=== PATIENT | female | born 1950 | race Caucasian/White ===

== ENCOUNTER 2022-01-18 08:24 | Emergency (ER) | payer MEDICARE, BC, SELFPAY ==
[2022-01-18 08:38] VITALS: BP 137/70; PULSE 85; RESP 18; O2SAT 97; BMI 22.7
[2022-01-18 09:00] VITALS: BP 123/73; PULSE 84; RESP 14; O2SAT 97
[2022-01-18 09:07] VITALS: O2SAT 94
--- NOTE | 2022-01-18 09:07 | CRLHL7_ITS ---
For Patients: As a result of the Century Cures Act, medical imaging exams and procedure reports are released immediately into your electronic medical record. You may view this report before your referring provider. If you have questions, please contact your health care provider. Indication: Chest Pain Comparison: None available. Technique: Single AP view chest Findings: There is hyperinflation and chronic interstitial change. There is no focal consolidation, effusion, or pneumothorax. The cardiomediastinal silhouette is within normal limits. The bony thorax is grossly intact. Impression: No acute cardiopulmonary abnormality. Dictated by Ji Morales MD @ 01/18/2022 9:53:34 AM (Electronically Signed)
--- NOTE | 2022-01-18 09:08 | ED_ITS ---
HPI - General Adult General Time Seen by Provider: 09:08 Date Seen: 01/18/22 Chief complaint: Chest Pain Stated complaint: Chest discomfort,anxiety Time Seen by Provider: 01/18/22 08:28 Source: patient Mode of arrival: ambulatory Limitations: no limitations History of Present Illness HPI narrative: Patient is a 71 year white female who presents with chest tightness. She woke up at approximately 4 this morning, started to cough and felt like she had a airway congestion and mucus plug she tried to cough this out and subsequent developed some chest tightness and spasm under her breast bone. No radiation, no neck pain known arm pain, known eyes nausea, vomiting, diaphoresis. She has had no abdominal pain, no leg swelling or edema, no bleeding or clotting prob lems. Patient has not had any cardiac history, she has not had hypertension, or diabetes, or high cholesterol. Patient has had a past medical history of a subdural hematoma with craniotomy several years ago from a fall down stairs, spinal stenosis on gabapentin, sleep problem, depression anxiety. Patient denies COVID symptoms, recent fever chills or cold symptoms, skin rashes, no neck pain back pain that is different than normal. Related Data Allergies Allergy/AdvReac Type Severity Reaction Status Date / Time hydrocodone Allergy Verified 01/18/22 09:24 soy Allergy Verified 01/18/22 09:24 lorazepam [From Ativan] AdvReac Mild feeling Verified 01/18/22 09:24 weird Review of Systems Status of ROS: Reports: 10 or more systems reviewed and unremarkable except as noted in History and below Exam Narrative: Exam Narrative: Objective: Patient is alert or x3 in no distress noncyanotic HEENT is unremarkable neck supple out nodes chest is clear heart rhythm regular heart murmur no palpable chest wall pain abdomen benign soft extremities are without edema. Neurologic is nonfocal Good peripheral perfusion Skin is warm and dry, no rashes Const: Vital Signs, click to edit/add: Vital Signs - 24 hr 01/18/22 08:38 01/18/22 09:07 Pulse Rate [Apical ] 85 Respiratory Rate 18 Blood Pressure [Ri ght Upper Arm] 137/70 Pulse Oximetry 97 94 Oxygen Delivery Me thod Room Air Course Vital Signs Vital signs: Initial Vital Signs Temperature Source Temporal Artery Scan 01/18/22 08:38 Pulse Rate 85 01/18/22 08:38 Pulse Rhythm 01/18/22 08:38 Respiratory Rate 18 01/18/22 08:38 Blood Pressure 137/70 01/18/22 08:38 Blood Pressure Mean 92 01/18/22 08:38 Pulse Oximetry 97 01/18/22 08:38 Oxygen Delivery Method 01/18/22 08:38 Vital Signs Pulse Rate 85 01/18/22 08:38 Respiratory Rate 18 01/18/22 08:38 Blood Pressure 137/70 01/18/22 08:38 Pulse Oximetry 97 01/18/22 08:38 Oxygen Delivery Method 01/18/22 08:38 Pulse Rate 85 01/18/22 08:38 Respiratory Rate 18 01/18/22 08:38 Blood Pressure 137/70 01/18/22 08:38 Pulse Oximetry 94 01/18/22 09:07 Oxygen Delivery Method 01/18/22 08:38 Medical Decision Making MDM Narrative Medical decision making narrative: The patient had an episode of coughing this morning, and subsequent had some chest tightness, certainly this could be some esophageal irritation or tracheal irritation, or just chest wall discomfort. She also has a history of anxiety and I think that is made this more prominent. Will do a 90 minute cardiac rule- out protocol, EKG monitoring, IV Ativan, aspirin. At this point she really describes only just mild tightness substernally, and it has improved significantly, no radiation of discomfort. EKG on presentation by my read shows normal sinus rhythm no acute ST T wave changes a couple of PACs. Addendum: Patient's chest x-ray by my review looks unremarkable, EKG shows normal sinus rhythm no acute ST T wave changes couple of PACs. Two troponins are negative. She declined any Ativan. I suspect she may have some chest wall inflammation, or symptoms related to anxiety from this morning. Light activity recommended continue home medications, follow up with primary care in the next 2 days for reassessment certainly sooner change concerns worsening. Return to ED Lab Data Labs: Lab Results 01/18/22 01/18/22 01/18/22 Range/Units 09:00 09:00 09:08 WBC 9.18 (4.50-11.00) K/uL RBC 3.42 L (4.00-5.20) m/uL Hgb 11.4 L (12.0-16.0) gm/dL Hct 33.1 (33.0-51.0) % MCV 97 (80-100) fL MCH 33 (26-34) pg MCHC 34 (32-36) gm/dL RDW Coeff of Carolynn 11.9 (11.5-15.5) % Plt Count 272 (140-440) K/uL Neut % (Auto) 77.0 H (42.0-72.0) % Lymph % (Auto) 11.8 L (20-44) % [place] % (Auto) 8.2 (0.0-11.0) % Eos % (Auto) 2.1 (0.0-7.0) % Baso % (Auto) 0.4 (0.0-3.0) % Neut # (Auto) 7.10 H (1.7-7.0) K/uL Lymph # (Auto) 1.10 (0.90-2.90) K/uL [place] # (Auto) 0.80 (0.00-0.90) K/UL Eos # (Auto) 0.19 (0.00-0.50) K/uL Baso # (Auto) 0.04 (0.00-0.30) K/uL Abs Immat Gran (auto) 0.05 (0.00-0.30) K/uL Sodium 135 (135-149) mmol/L Potassium 3.7 (3.6-5.1) mmol/L Chloride 101 (96-114) mmol/L Carbon Dioxide 27 (20-32) mmol/L BUN 15 (7-30) mg/dL Creatinine 0.6 (0.5-1.5) mg/dL Estimated Creat Clear 40.07 Estimated GFR 97 ml/min Glucose 114 (60-115) mg/dL Calcium 8.7 (8.4-10.6) mg/dL C-Reactive Protein < 0.5 L (0.5-1.0) mg/dL NT-Pro-B Natriuret Pep 192 H (0-125) PG/mL POC Troponin I 0.00 L (0.01-0.04) ng/ml 01/18/22 Range/Units 10:33 WBC (4.50-11.00) K/uL RBC (4.00-5.20) m/uL Hgb (12.0-16.0) gm/dL Hct (33.0-51.0) % MCV (80-100) fL MCH (26-34) pg MCHC (32-36) gm/dL RDW Coeff of Carolynn (11.5-15.5) % Plt Count (140-440) K/uL Neut % (Auto) (42.0-72.0) % Lymph % (Auto) (20-44) % [place] % (Auto) (0.0-11.0) % Eos % (Auto) (0.0-7.0) % Baso % (Auto) (0.0-3.0) % Neut # (Auto) (1.7-7.0) K/uL Lymph # (Auto) (0.90-2.90) K/uL [place] # (Auto) (0.00-0.90) K/UL Eos # (Auto) (0.00-0.50) K/uL Baso # (Auto) (0.00-0.30) K/uL Abs Immat Gran (auto) (0.00-0.30) K/uL Sodium (135-149) mmol/L Potassium (3.6-5.1) mmol/L Chloride (96-114) mmol/L Carbon Dioxide (20-32) mmol/L BUN (7-30) mg/dL Creatinine (0.5-1.5) mg/dL Estimated Creat Clear Estimated GFR ml/min Glucose (60-115) mg/dL Calcium (8.4-10.6) mg/dL C-Reactive Protein (0.5-1.0) mg/dL NT-Pro-B Natriuret Pep (0-125) PG/mL POC Troponin I 0.01 (0.01-0.04) ng/ml Discharge Plan Discharge Clinical Impression: Acute chest wall pain Patient Disposition: Home w/ Parent or Adult Condition: Improved Additional Instructions: Light activity, continue home medications, recheck with primary care doctor within the next 2 days. Return sooner problems or concerns or recurrence. We discussed further cardiac assessment with her regular physician. Activity Level: Light activity Discharge Diet: Regular Follow Up/Referrals: Audra Zepeda MD [Primary Care Provider] - Stand Alone Forms: [employer] Info Instructions
[2022-01-18 09:18] LABS: Basophils Absolute Auto 0.04 K/uL (0.00-0.30); Basophils Percent Auto 0.4 % (0.0-3.0); Eosinophils Absolute Auto 0.19 K/uL (0.00-0.50); Eosinophils Percent Auto 2.1 % (0.0-7.0); Hematocrit 33.1 % (33.0-51.0); Hemoglobin* 11.4 gm/dL (12.0-16.0); Immature Granulocytes Abs Auto 0.05 K/uL (0.00-0.30); Lymphocytes Percent Auto 11.8 % (20-44); Mean Corpuscular HGB Conc 34 gm/dL (32-36); Mean Corpuscular Hemoglobin 33 pg (26-34); Mean Corpuscular Volume 97 fL (80-100); Monocytes Percent Auto 8.2 % (0.0-11.0); Platelet Count* 272 K/uL (140-440); RDW Coefficient of Variation % 11.9 % (11.5-15.5); Red Blood Count 3.42 m/uL (4.00-5.20); White Blood Count* 9.18 K/uL (4.50-11.00)
[2022-01-18 09:20] LABS: Slide Review Reflex No
[2022-01-18] MEDS: ASPIRIN 81 MG TAB.CHEW 324 MG PO (09:22)
[2022-01-18] MEDS: 0.9 % SODIUM CHLORIDE 500 ML 500 ML IV (09:22)
--- NOTE | 2022-01-18 09:22 | ED.NURSE ---
Pt refusing ativan at this time d/t previous hx of feeling weird.
[2022-01-18 09:28] LABS: Chloride* 101 mmol/L (96-114); Potassium* 3.7 mmol/L (3.6-5.1); Sodium* 135 mmol/L (135-149)
[2022-01-18 09:30] VITALS: BP 121/63; PULSE 82; RESP 12; O2SAT 98
[2022-01-18 09:31] LABS: Creatinine* 0.6 mg/dL (0.5-1.5); Est. Creatinine Clearance* 40.07; Estimated Glomerular Filt Rate 97 ml/min
[2022-01-18 09:32] LABS: Blood Urea Nitrogen* 15 mg/dL (7-30); Calcium* 8.7 mg/dL (8.4-10.6); Carbon Dioxide* 27 mmol/L (20-32); Glucose* 114 mg/dL (60-115)
[2022-01-18 09:40] LABS: NT Pro B Type NatriureticPept* 192 PG/mL (0-125)
[2022-01-18 09:44] LABS: C Reactive Protein* < 0.5 mg/dL (0.5-1.0)
[2022-01-18 10:00] VITALS: BP 131/67; PULSE 84; RESP 18; O2SAT 98
[2022-01-18 10:30] VITALS: BP 108/84; PULSE 89; RESP 12; O2SAT 98
[2022-01-18 10:56] LABS: Troponin, Point-of-Care* 0.01 ng/ml (0.01-0.04)
== END 2022-01-18 11:30 | disposition home or self-care (01) ==
PROVIDERS: Emergency Provider Family Medicine; PCP Family Medicine
DX: R07.89 Other chest pain (principal)
CPT/HCPCS: 36415; 71045; 80048; 83880; 84484; 85025; 86140; 93005; 94761; 99285; A9270; J7120

== ENCOUNTER 2023-02-23 21:07 | Emergency (ER) | payer MEDICARE, BC, SELFPAY ==
[2023-02-23 21:52] VITALS: BP 147/73; PULSE 111; RESP 18; TEMP 36.6; O2SAT 96; BMI 27.3
--- NOTE | 2023-02-23 22:14 | ED.GENADULT ---
HPI - General Adult General Chief complaint: Neuro Symptoms/Altered Deficit Stated complaint: Brain related issues, TBI 4 years ago Time Seen by Provider: 02/23/23 22:14 History of Present Illness HPI narrative: pt went to bed last night late not realizing it was late, spent extra time before getting up, states she was using flashlight for chapstick, tried putting gloves on toilet paper roll instead of TP that was out. says at 1500 he went to work and felt off about her and came home early . when he tried to bring her to ER she put 2 different shoes on, states she has been doing weird things. pt takes long time to answer questions, troubles finding answers for some questions - SO states this isnt her normal . hx brain tbi 73-year-old woman presenting to the emergency department accompanied by her . Concern of acting rather strangely. Strange behaviors as noted above. Tends to stay up late and thought to have rather poor sleep. Underlying history of TBI. No weakness is described. Just seems to be unable to answer questions very fumbling for answers and words. Last known well over 6 hours ago. is wondering about increasingly OCD behavior with throat clearing for example. Chronic chewing of the mouth behavior since TBI; not new. Has been for some time now spending increasing amount of time in the bathroom. Throat clearing as noted above. Later questioning reveals that residual symptoms of TBI were an expressive aphasia of some sort. This TBI occurred 4 years ago when she fell on stairs. No noted fever. No new pain complaints. No diarrhea. No new medications. Related Data Home Medications Medication Instructions Recorded Confirmed dextroamphetamine-amphetamine 20 1 tab PO BID 02/19/23 02/19/23 mg tablet estradiol 0.025 mg/24 hr weekly 1 patch transdermal 02/19/23 02/19/23 transdermal patch estradiol 2 mg (7.5 mcg/24 hour) 1 vag ring vaginal [id number] 02/19/23 02/19/23 vaginal ring (Estring) gabapentin 300 mg capsule mg PO BID 02/19/23 02/19/23 mirtazapine 15 mg tablet 15 mg PO QPM 02/19/23 02/19/23 progesterone micronized 100 mg mg PO 02/19/23 02/19/23 capsule Allergies Allergy/AdvReac Type Severity Reaction Status Date / Time hydrocodone Allergy Verified 02/19/23 14:40 soy Allergy Verified 02/19/23 14:40 lorazepam [From Ativan] AdvReac Mild feeling Verified 02/19/23 14:40 weird Review of Systems Status of ROS: Reports: unobtainable due to mental status [facility] Medical History TBI (traumatic brain injury) ?S06.9XAA - Unspecified intracranial injury with loss of consciousness status unknown, initial encounter (ICD-10) Anxiety and depression ?F41.9 - Anxiety disorder, unspecified (ICD-10) ?F32.A - Depression, unspecified (ICD-10) Surgical History Hx of tonsillectomy ?Z90.89 - Acquired absence of other organs (ICD-10) History of hysteroscopy ?Z98.890 - Other specified postprocedural states (ICD-10) H/O section ?Z98.891 - History of uterine scar from previous surgery (ICD-10) Social History Smoking Status: Never smoker Do you use any of these nicotine containing products: None Second hand tobacco smoke exposure: No How often do you have a drink containing alcohol: never How often do you have six or more drinks on one occasion: Never AUDIT-C Alcohol total score: 0 Non-prescribed substance use: denies use service: No Exam Narrative: Exam Narrative: Very pleasant. Has a book she is fidgeting. Breathing easily. Eyes are bright. Responds quickly to question or least attempts to and then Stalls and response. Unable to complete a thought. Seems to just drift off though is if searching for a word or phrase. Head is atraumatic. Neck is supple. Cranial nerves 2-12 look to be intact. She is frequently clearing her throat. Demonstrating chewing behavior as noted above. She says she thinks she is chewing on her cheek. I do not see any intraoral injury. Lungs are clear. Heart elevated rate in a regular rhythm. Abdomen is protuberant soft and nontender. Const: Vital Signs, click to edit/add: Vital Signs - 24 hr 02/23/23 21:52 02/24/23 01:58 02/24/23 02:41 Temperature 97.9 F 97.9 F 97.9 F Pulse Rate [Left P ulse Oximeter] 111 H 91 91 Respiratory Rate 18 18 18 Blood Pressure [Ri ght Upper Arm] 147/73 H 135/68 135/68 Pulse Oximetry 96 96 Oxygen Delivery Me thod Room Air Room Air Course Vital Signs Vital signs: Initial Vital Signs Temperature 97.9 F 02/23/23 21:52 Temperature Source Temporal Artery Scan 02/23/23 21:52 Pulse Rate 111 H 02/23/23 21:52 Respiratory Rate 18 02/23/23 21:52 Blood Pressure 147/73 H 02/23/23 21:52 Blood Pressure Mean 97 02/23/23 21:52 Blood Pressure Position Sitting 02/23/23 21:52 Pulse Oximetry 96 02/23/23 21:52 Oxygen Delivery Method Room Air 02/23/23 21:52 Vital Signs Temperature 97.9 F 02/23/23 21:52 Pulse Rate 111 H 02/23/23 21:52 Respiratory Rate 18 02/23/23 21:52 Blood Pressure 147/73 H 02/23/23 21:52 Pulse Oximetry 96 02/23/23 21:52 Oxygen Delivery Method Room Air 02/23/23 21:52 Temperature 97.9 F 02/24/23 02:41 Pulse Rate 91 02/24/23 02:41 Respiratory Rate 18 02/24/23 02:41 Blood Pressure 135/68 02/24/23 02:41 Pulse Oximetry 96 02/24/23 01:58 Oxygen Delivery Method Room Air 02/24/23 01:58 Medications Administered Medications: Discontinued Medications Generic Name Dose Route Start Last Admin Trade Name Freq PRN Reason Stop Dose Admin Sodium Chloride 1,000 mls @ 1,000 mls/hr 02/23/23 22:32 02/23/23 23:41 0.9 % Sodium Chloride 1000 Ml IV 02/23/23 23:31 Infused .Q1H ONE Infusion Olanzapine 5 mg 02/24/23 02:33 02/24/23 02:40 Olanzapine 5 Mg Tab.Rapdis PO 02/24/23 02:34 5 mg ONCE ONE Administration Olanzapine 5 mg 02/24/23 02:39 02/24/23 02:40 Olanzapine 5 Mg Tab.Rapdis PO 02/24/23 02:40 5 mg ONCE ONE Administration Medical Decision Making MDM Narrative Medical decision making narrative: More information leaning conversation with that has been spending increasing amount of time in the bathroom for some time. does have a history of urge incontinence. This is demonstrated here in the emergency department as well. Throat clearing in other ticks seem to be manifesting. The TBI which occurred when she fell down some stairs 4 years ago did result in symptoms of an expressive aphasia. Symptoms are much worse as she gets tired. Tends to stay up rather late. He reports that she did not get all the rehab that she needed for usual level of functioning. Possible head bleed. Perhaps there is some underlying infectious etiology that might be amplifying/uncovering old TBI symptoms. Electrolyte abnormality? Medication effect? Mental health? Will be giving L of IV normal saline. CRP is elevated. White count normal. U tox consistent with prescriptions. Answer does not appear to be in labs. She is hyponatremic, mildly. I do not think this degree of hyponatremia explains symptoms. After discussion with understandably concerned , decided to proceed with head imaging. Head CT reviewed by me looks to show chronic changes, calcifications that I would consider consistent with prior head injury. Postoperative changes. CT angio head and neck is otherwise unremarkable per Radiology over-read Ambulatory about the emergency department during her stay. Frequent visits to the bathroom for extended periods of time. Continues to demonstrate some redirectable confusion. Discussed safety for return home versus stay in hospital. At this point it appears safe to go home since with imminently capable and attentive partner. Will need close follow-up with primary care provider. Neuropsych eval? Demonstrating delirium? Rather poor sleep. Perhaps this has exacerbated TBI symptoms? Attempted to help with sleep here with a dosing of olanzapine. Declined to take. Will be discharged with and 2 tabs of olanzapine. See patient discharge plan Lab Data Lab results reviewed: Yes I reviewed the patient's lab results Labs: Lab Results 02/23/23 02/23/23 02/24/23 Range/Units 22:18 22:33 00:02 WBC 6.55 (4.50-11.00) K/uL RBC 3.58 L (4.00-5.20) m/uL Hgb 11.3 L (12.0-16.0) gm/dL Hct 32.8 L (33.0-51.0) % MCV 92 (80-100) fL MCH 32 (26-34) pg MCHC 35 (32-36) gm/dL RDW Coeff of Carolynn 12.5 (11.5-15.5) % Plt Count 254 (140-440) K/uL Neut % (Auto) 82.7 H (42.0-72.0) % Lymph % (Auto) 9.3 L (20-44) % [place] % (Auto) 6.7 (0.0-11.0) % Eos % (Auto) 0.0 (0.0-7.0) % Baso % (Auto) 0.5 (0.0-3.0) % Neut # (Auto) 5.40 (1.7-7.0) K/uL Lymph # (Auto) 0.60 L (0.90-2.90) K/uL [place] # (Auto) 0.40 (0.00-0.90) K/UL Eos # (Auto) 0.00 (0.00-0.50) K/uL Baso # (Auto) 0.03 (0.00-0.30) K/uL Abs Immat Gran (auto) 0.05 (0.00-0.30) K/uL Imm/Tot Granulo (auto) 0.8 % Sodium 129 L (135-149) mmol/L Potassium 3.8 (3.6-5.1) mmol/L Chloride 95 L (96-114) mmol/L Carbon Dioxide 26 (20-32) mmol/L Anion Gap 8 (7-15) mEq/L BUN 18 (7-30) mg/dL Creatinine 0.7 (0.5-1.5) mg/dL Estimated Creat Clear 37.06 Estimated GFR 92 ml/min Glucose 143 H (60-115) mg/dL Calcium 8.6 (8.4-10.6) mg/dL Magnesium 2.0 (1.5-2.6) mg/dL Total Bilirubin 0.5 (0.1-1.5) mg/dL Direct Bilirubin 0.0 (0.0-0.5) mg/dL AST 45 H (12-35) U/L ALT 33 (4-35) U/L Alkaline Phosphatase 103 (40-150) U/L Troponin I < 0.01 L (0.01-0.04) ng/mL C-Reactive Protein 5.9 H (0.5-1.0) mg/dL NT-Pro-B Natriuret Pep 580 pg/mL Total Protein 7.7 (6.0-8.3) g/dL Albumin 4.2 (3.3-5.0) g/dL TSH 1.340 (0.270-4.20) uIU/mL Urine Color Yellow (Yellow) Urine Appearance Clear (Clear) Urine pH 5.5 (5.0-8.5) Ur Specific [place] 1.015 (1.000-1.030) Urine Protein 1+ A (Negative) Urine Glucose (UA) Negative (Negative) Urine Ketones Negative (Negative) Urine Blood Trace-intact A (Negative) Urine Nitrite Negative (Negative) Urine Bilirubin Negative (Negative) Urine Urobilinogen 0.2 (0.2-1.0) Ur Leukocyte Esterase Negative (Negative) Urine RBC 0-2 (0-2) Urine WBC 0-2 (0-5) Ur Squamous Epith Cells Few (None-Few) Urine Bacteria None (None) Salicylates < 1.0 L (1.0-10) mg/dL Urine Opiates Screen Negative (Negative) Ur Oxycodone Screen Negative (Negative) Urine Methadone Screen Negative (Negative) Ur Propoxyphene Screen Not Reportable Acetaminophen < 10.0 L (10.0-30.0) ug/mL Ur Barbiturates Screen Negative (Negative) U Tricyclic Antidepress Negative (Negative) Ur Phencyclidine Scrn Negative (Negative) Ur Amphetamines Screen POSITIVE A (Negative) U Methamphetamines Scrn Negative (Negative) U Benzodiazepines Scrn Negative (Negative) Urine Cocaine Screen Negative (Negative) U Marijuana (THC) Screen Negative (Negative) Ur Drug Screen Comment See Note Ethyl Alcohol < 0.01 L (0.01-0.03) % SARS-CoV-2 (PCR) Negative SARS-CoV-2 (Negative) Influenza Type A (PCR) Negative PCR FLU A (Negative) Influenza Type B (PCR) Negative PCR FLU B (Negative) RSV (PCR) Negative PCR RSV (Negative) ECG Data Attestation: I personally reviewed and interpreted this ECG as follows: (Sinus tachycardia 104 without acute ischemic changes) Discharge Plan Discharge Clinical Impression: Acute alteration in mental status, Hyponatremia Patient Disposition: Home w/ Parent or Adult Condition: Stable Additional Instructions: While I suspect that your sodium is not back to normal, I believe we have replaced it to a safe range. I do not think the low sodium is the reason for your unusual behavior. Do try to string together a couple of nights of good sleep. Please check in with your rehabilitation care team and primary care provider. I would check labs again in about 2 weeks. If you're struggling more, please feel free to return. Can dose again 1/2 or the whole tablet of Zyprexa you have in hand if still unable to sleep in an hour or 2. Prescriptions: No Action dextroamphetamine-amphetamine 20 mg tablet 1 tab PO BID mirtazapine 15 mg tablet 15 mg PO QPM progesterone micronized 100 mg capsule PO Estring 2 mg (7.5 mcg /24 hour) ring 1 vag ring vaginal [id number] estradiol 0.025 mg/24 hr patch weekly 1 patch transdermal gabapentin 300 mg capsule PO BID Follow Up/Referrals: Audra Zepeda MD [Primary Care Provider] - Stand Alone Forms: [email or web address] Info Instructions
[2023-02-23] MEDS: 0.9 % SODIUM CHLORIDE 1000 ml 1,000 ML IV (22:41)
[2023-02-23 23:01] LABS: Albumin* 4.2 g/dL (3.3-5.0); Chloride* 95 mmol/L (96-114); Sodium* 129 mmol/L (135-149)
[2023-02-23 23:02] LABS: Potassium* 3.8 mmol/L (3.6-5.1)
[2023-02-23 23:03] LABS: Creatinine* 0.7 mg/dL (0.5-1.5); Est. Creatinine Clearance* 37.06; Estimated Glomerular Filt Rate 92 ml/min
[2023-02-23 23:04] LABS: Alanine Aminotransferase* 33 U/L (4-35); Alkaline Phosphatase* 103 U/L (40-150); Anion Gap 8 mEq/L (7-15); Aspartate Amino Transferase* 45 U/L (12-35); Bilirubin Total* 0.5 mg/dL (0.1-1.5); Blood Urea Nitrogen* 18 mg/dL (7-30); Calcium* 8.6 mg/dL (8.4-10.6); Carbon Dioxide* 26 mmol/L (20-32); Glucose* 143 mg/dL (60-115); Total Protein* 7.7 g/dL (6.0-8.3)
[2023-02-23 23:06] LABS: PCR FLU A Negative PCR FLU A (Negative); PCR FLU B Negative PCR FLU B (Negative); PCR RSV Negative PCR RSV (Negative)
[2023-02-23 23:07] LABS: Acetaminophen* < 10.0 ug/mL (10.0-30.0); C Reactive Protein* 5.9 mg/dL (0.5-1.0); Ethanol* < 0.01 % (0.01-0.03); Salicylate* < 1.0 mg/dL (1.0-10)
[2023-02-23 23:13] LABS: Basophils Absolute Auto 0.03 K/uL (0.00-0.30); Basophils Percent Auto 0.5 % (0.0-3.0); Hematocrit 32.8 % (33.0-51.0); Hemoglobin* 11.3 gm/dL (12.0-16.0); Immature Granulocytes Abs Auto 0.05 K/uL (0.00-0.30); Immature Granulocytes Pct Auto 0.8 %; Lymphocytes Percent Auto 9.3 % (20-44); Mean Corpuscular HGB Conc 35 gm/dL (32-36); Mean Corpuscular Hemoglobin 32 pg (26-34); Mean Corpuscular Volume 92 fL (80-100); Monocytes Percent Auto 6.7 % (0.0-11.0); Neutrophils Percent Auto 82.7 % (42.0-72.0); Platelet Count* 254 K/uL (140-440); RDW Coefficient of Variation % 12.5 % (11.5-15.5); Red Blood Count 3.58 m/uL (4.00-5.20); White Blood Count* 6.55 K/uL (4.50-11.00)
[2023-02-23 23:20] LABS: NT Pro B Type NatriureticPept* 580 pg/mL; Troponin I* < 0.01 ng/mL (0.01-0.04)
[2023-02-23 23:23] LABS: Slide Review Reflex No
[2023-02-23 23:46] LABS: SARS PCR* Negative SARS-CoV-2 (Negative)
[2023-02-24 00:17] LABS: Appearance Urine Clear (Clear); Bilirubin Urine Negative (Negative); Blood Urine Trace-intact (Negative); Color Urine Yellow (Yellow); Glucose Urine Negative (Negative); Ketones Urine Negative (Negative); Leukocyte Esterase Urine Negative (Negative); Nitrite Urine Negative (Negative); Protein Urine 1+ (Negative); Specific Gravity Urine 1.015 (1.000-1.030); Urobilinogen Urine 0.2 (0.2-1.0); pH Urine 5.5 (5.0-8.5)
--- NOTE | 2023-02-24 00:36 | CRLHL7_ITS ---
For Patients: As a result of the Century Cures Act, medical imaging exams and procedure reports are released immediately into your electronic medical record. You may view this report before your referring provider. If you have questions, please contact your health care provider. DATE: 02/24/2023 CLINICAL HISTORY: Patient with altered mental status. TECHNIQUE: Standard helical CT image acquisition of the neck up to the skull base after bolus intravenous contrast enhancement. 2D and 3D MIP images for post-processing were performed and interpreted on an independent workstation and 3D images were permanently archived. COMPARISON: CT same day. FINDINGS: The origins of the great vessels from the aortic arch are patent. The origin of the right vertebral artery is patent. The origin of the left vertebral artery is patent. The common carotid arteries are patent. There is no stenosis at the origin of the right internal carotid artery. There is no stenosis at the origin of the left internal carotid artery. The rest of the cervical segments of the internal carotid arteries are patent up to the skull base. The left vertebral artery is dominant. The cervical segments of the vertebral arteries are patent up to the skull base. The visualized lung apices are unremarkable. The thyroid gland is unremarkable. The soft tissues of the neck are unremarkable. There are degenerative changes in the cervical spine. IMPRESSION: Normal CT angiogram of the neck. Please note that all CT scans at this facility use dose modulation, iterative reconstruction, and/or weight-based dosing when appropriate to reduce radiation dose to as low as reasonably achievable. Dictated by Moisés Saenz MD @ 02/24/2023 9:27:25 AM (Electronically Signed)
--- NOTE | 2023-02-24 00:36 | CRLHL7_ITS ---
For Patients: As a result of the Century Cures Act, medical imaging exams and procedure reports are released immediately into your electronic medical record. You may view this report before your referring provider. If you have questions, please contact your health care provider. INDICATION: Altered mental status. TECHNIQUE: CT head without contrast. COMPARISON: 03/04/2019. FINDINGS: Postsurgical changes of left parietal craniotomy with underlying chronic small extra-axial collection measuring 4 mm in maximal thickness and associated dural calcifications. Proportionate prominence of the ventricles and sulci, reflecting generalized cerebral volume loss. Patchy white matter low attenuation changes, nonspecific but likely reflecting chronic small vessel ischemic disease. Isabel-white matter differentiation is maintained. No evidence of intracranial hemorrhage or midline shift. The visualized paranasal sinuses and mastoid air cells demonstrate no acute or significant findings. The visualized orbits are grossly unremarkable. No skull fractures. IMPRESSION: 1. No acute intracranial abnormality. 2. Postsurgical changes of left parietal craniotomy with underlying chronic small extra-axial collection and associated dural calcifications. 3. Senescent changes including generalized cerebral volume loss and chronic small vessel ischemic disease. Please note that all CT scans at this facility use dose modulation, iterative reconstruction, and/or weight-based dosing when appropriate to reduce radiation dose to as low as reasonably achievable. Dictated by Eliu Pedersen MD @ 02/24/2023 1:44:53 AM (Electronically Signed)
--- NOTE | 2023-02-24 00:36 | CRLHL7_ITS ---
For Patients: As a result of the Century Cures Act, medical imaging exams and procedure reports are released immediately into your electronic medical record. You may view this report before your referring provider. If you have questions, please contact your health care provider. DATE: 02/24/2023 CLINICAL HISTORY: Patient with altered mental status. TECHNIQUE: Standard helical CT image acquisition through the intracranial circulation following intravenous administration of contrast material with bolus tracking. 2D and 3D MIP images for post-processing were performed and interpreted on an independent workstation and 3D images were permanently archived. COMPARISON: CT same day. FINDINGS: There is no cerebral aneurysm or large vessel occlusion. The right internal carotid artery is normal. The right middle cerebral artery and its branches are normal. The right anterior cerebral artery and its branches are normal. The left internal carotid artery is normal. The left middle cerebral artery and its branches are normal. The left anterior cerebral artery and its branches are normal. The anterior communicating artery is well visualized and appears normal. The right vertebral artery and PICA are normal. The left vertebral artery and PICA are normal. The left vertebral artery is dominant. The basilar artery is patent and appears normal. The right posterior cerebral artery is normal. The left posterior cerebral artery is normal. The visualized venous structures are patent. IMPRESSION: Normal CT angiogram of the head without intracranial aneurysm or other neurovascular abnormality. Please note that all CT scans at this facility use dose modulation, iterative reconstruction, and/or weight-based dosing when appropriate to reduce radiation dose to as low as reasonably achievable. Dictated by Moisés Saenz MD @ 02/24/2023 9:27:25 AM (Electronically Signed)
[2023-02-24 00:38] LABS: Amphetamine Screen Urine POSITIVE (Negative); Barbiturate Screen Urine Negative (Negative); Benzodiazepines Screen Urine Negative (Negative); Cannabinoid Screen Urine Negative (Negative); Cocaine Screen Urine Negative (Negative); Methadone Screen Urine Negative (Negative); Methamphetamines Screen Urine Negative (Negative); Opiate Screen Urine Negative (Negative); Oxycodone Screen Urine Negative (Negative); Phencyclidine Screen Urine Negative (Negative); Tricyclic Antidepressant Urine Negative (Negative)
[2023-02-24 00:51] LABS: RBC Urine 0-2 (0-2); Squamous Epithelial Cell Urine Few (None-Few); WBC Urine 0-2 (0-5)
[2023-02-24 01:58] VITALS: BP 135/68; PULSE 91; RESP 18; TEMP 36.6; O2SAT 96
[2023-02-24] MEDS: OLANZapine 5 MG TAB.RAPDIS PO ×2 (02:40)
[2023-02-24 02:41] VITALS: BP 135/68; PULSE 91; RESP 18; TEMP 36.6
== END 2023-02-24 02:58 | disposition home or self-care (01) ==
PROVIDERS: Emergency Provider Family Medicine; PCP Family Medicine
DX: R41.82 Altered mental status, unspecified (principal); E87.1 Hypo-osmolality and hyponatremia
CPT/HCPCS: 36415; 70450; 70496; 70498; 80048; 80076; 80143; 80179; 80306; 81001; 82077; 83735; 83880; 84443; 84484; 85025; 86140; 87631; 93005; 99284; 99285; A9270; J7030; Q9967

== ENCOUNTER 2024-05-30 11:57 | Outpatient (REF) | payer OTHER, SELFPAY ==
[2024-05-30 12:23] LABS: Appearance Urine Clear (Clear); Bilirubin Urine Negative (Negative); Blood Urine Trace-intact (Negative); Color Urine Yellow (Yellow); Glucose Urine Negative (Negative); Ketones Urine 1+ (Negative); Leukocyte Esterase Urine Negative (Negative); Nitrite Urine Negative (Negative); Protein Urine Negative (Negative); Urobilinogen Urine 0.2 (0.2-1.0)
[2024-05-30 12:39] LABS: Bacteria Urine Many; RBC Urine 0-2 (0-2)
== END 2024-05-30 11:58 | disposition home or self-care (01) ==
LOC: NPINS 11:57
PROVIDERS: PCP Family Medicine; Visit Provider Nurse Practitioner Gerontology
DX: R33.9 Retention of urine, unspecified (principal)
CPT/HCPCS: 81001; 81003; 87086; 87186

== ENCOUNTER 2024-09-03 20:58 | Outpatient (CLI) | payer MEDICARE, BC, SELFPAY | END 2024-09-03 20:59 | disposition home or self-care (01) | LOC: AMB 09-04 13:46 | PROVIDERS: PCP Family Medicine; Visit Provider Emergency Medicine | DX: R07.89 Other chest pain (principal) | CPT/HCPCS: A0425; A0427 ==

== ENCOUNTER 2024-09-06 14:54 | Outpatient (CLI) | payer MEDICARE, BC, SELFPAY | END 2024-09-06 14:55 | disposition home or self-care (01) | LOC: AMB 09-08 11:38 | PROVIDERS: PCP Family Medicine; Visit Provider Emergency Medicine Emergency Medical Services | DX: R07.89 Other chest pain (principal) | CPT/HCPCS: A0998 ==

== ENCOUNTER 2024-09-06 16:09 | Emergency (ER) | payer MEDICARE, BC, SELFPAY ==
--- OUTSIDE RECORDS SUMMARY | 2008-05-21 17:00 | XMS_ITS | Encounter Summary ---
Author Organization [facility] Address [address] [place] [id number] Care Team Providers Care Prestidigitator Name Role Phone Frw, None Primary Care Provider Unavailabl e Encounter Details Date Type Department Care Team (Late st Contact Info) Description 05/21/2008 4:00 PM [facility] in [address] [phone] Danisha Palafox MD [facility] [address] [place] [address] Social History Tobacco Use Types Packs/Day Years Used Date Smoking Tobacco: Former Smokeless Tobacco: Never Comments:smoked for 3 yrs in college Alcohol Use Standard Drinks/Week Comments No 0 (1 standard drink = 0.6 oz pur e alcohol) Comments No Sex and Gender Information Value Date Recorded Sex Assigned at Not on file Legal Sex Female 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
--- OUTSIDE RECORDS SUMMARY | 2009-07-23 08:24 | XMS_ITS | Encounter Summary ---
Author Organization [facility] Address [address] [place] [id number] Care Team Providers Care Risk Management Specialist Name Role Phone Frw, None Primary Care Provider Unavailabl e Encounter Details Date Type Department Care Team (Late st Contact Info) Description 07/23/2009 8:24 AM [facility] in [address] [phone] Danisha Palafox MD [facility] [address] [place] [address] Social History Tobacco Use Types Packs/Day Years Used Date Smoking Tobacco: Former Smokeless Tobacco: Never Comments:smoked for 3 yrs in college Alcohol Use Standard Drinks/Week Comments No 0 (1 standard drink = 0.6 oz pur e alcohol) Comments No Sex and Gender Information Value Date Recorded Sex Assigned at Not on file 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
--- OUTSIDE RECORDS SUMMARY | 2010-09-26 16:30 | XMS_ITS | Encounter Summary ---
Author Organization [facility] Address [address] [place] [address] Care Team Providers Care Lead Manufacturing Engineering Tech Name Role Phone Frw, None Primary Care Provider Tara Eduardo MD Unavailable [phone] Encounter Details Date Type Department Care Team (Late st Contact Info) Description 09/26/2010 4:30 PM [facility] in [address] [phone] Waleska Cheng NP [address] [place] [address] Social History Tobacco Use Types Packs/Day Years Used Date Smoking Tobacco: Former Smokeless Tobacco: Never Comments:smoked for 3 yrs in college Alcohol Use Standard Drinks/Week Comments No 0 (1 standard drink = 0.6 oz pur e alcohol) Comments No Sex and Gender Information Value Date Recorded Sex Assigned at Not on file Legal Sex Female 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
--- OUTSIDE RECORDS SUMMARY | 2024-08-27 14:47 | XMS_ITS ---
Author Organization [facility] Address [address] [place] [address] , [address] [place] [address] Phone Care Team Providers Care Private Branch Exchange Service Advisor Name Role Phone Beryl MALONEY, Nilsa Fox Unavailable Conditions or Problems No information available. Medications Medication Instructions Start Date Stop Date Generic Name [facility] Provider HYDROCODONE-ACETAMIN OPHEN 5-300 MG TABS NOT SURE 08/27 hydrocodone-aceta minophen 10693881475 Nilsa Cordoba PA-C IPRATROPIUM BROMIDE 0.03 % SOLN Inhale 2 spray into both nostrils three times a day 01/06 ipratropium bromide [id number] Nilsa CHAMBERSC Upoju-7-YWH-EPA-Fish Oil 1,000 mg (120 mg-180 mg) cap Take 1 capsule by mouth once a day 05/09 120 mg-180 mg Nilsa Cordoba PA-C HYDROCHLOROTHIAZIDE 12.5 MG TABS hydrochlorothiaz i de [id number] Nilsa Cordoba PA-C LISINOPRIL 20 MG TABS lisinopril [id number] Nilsa Cordoba PA-C EQ ACETAMINOPHEN 500 MG TABS acetaminophen 38715234555 Nilsa Cordoba PA-C DONEPEZIL HCL 5 MG TABS 1 tablet by mouth once a day 04/28 donepezil [id number] Nilsa REED-Sheela MEMANTINE HCL 10 MG TABS week 1: take 1/2 tab nightly. week 2: take 1/2 tab twice a day. week 3: take 1/2 tab every morning and 1 tab nightly. week 4 onward: take 1 tab twice a day 08/27 memantine [id number] Nilsa Cordoba PA-C Medications Administered No information available. Allergies, Adverse Reactions, Alerts No information available. Results Date Name Value Unit Range Flag Description Office Visit: Office Visit f ax MEDS REVIEW Done Documenta tion of current medications (procedure) Plan of Care Type Date Detail Pending order Obtain outside r ecords Pending order Obtain outside r ecords Pending order Occupational The rapy Pending order Dementia - Diet; Exercise and Socialization Handout Pending order [facility] Handout Pending order Occupational The rapy Pending order Patient Instruct ions Pending order Follow up BASSAM Pending order Patient Instruct ions Pending order Obtain outside r ecords Pending order Obtain outside r ecords Pending order Occupational The [facility] Pending Order exclud ed from report: Pending order Occupational [facility] Pending Order exclud ed from report: Procedures Code Procedure Name Date Entry Date ORDERS Occupational Therapy ORDERS Occupational Therapy ORDERS Patient Instructions ORDERS Patient Instructions ORDERS [facility] Handout ORDERS Dementia - Diet; Exercise and Socializati on Handout Vital Signs No information available. Immunizations No information available. Advance Directives No information available.
--- OUTSIDE RECORDS SUMMARY | 2024-08-27 14:47 | XMS_ITS ---
Author Organization [facility] Address [address] [place] [address] , [address] [place] [address] Phone Care Team Providers Care Hospital Attendant Name Role Phone Beryl MALONEY, Nilsa Fox Unavailable Conditions or Problems No information available. Medications Medication Instructions Start Date Stop Date Generic Name [facility] Provider HYDROCODONE-ACETAMIN OPHEN 5-300 MG TABS NOT SURE 08/27 hydrocodone-aceta minophen [id number] Nilsa Cordoba PA-C IPRATROPIUM BROMIDE 0.03 % SOLN Inhale 2 spray into both nostrils three times a day 01/06 ipratropium bromide [id number] Nilsa CHAMBERSC Avwqf-9-SMV-EPA-Fish Oil 1,000 mg (120 mg-180 mg) cap Take 1 capsule by mouth once a day 05/09 120 mg-180 mg Nilsa Cordoba PA-C HYDROCHLOROTHIAZIDE 12.5 MG TABS hydrochlorothiaz i de [id number] Nilsa Cordoba PA-C LISINOPRIL 20 MG TABS lisinopril 22572333631 Nilsa Cordoba PA-C EQ ACETAMINOPHEN 500 MG TABS acetaminophen 00470327684 Nilsa Cordoba PA-C DONEPEZIL HCL 5 MG TABS 1 tablet by mouth once a day 04/28 donepezil 40255829383 Nilsa REED-Sheela MEMANTINE HCL 10 MG TABS week 1: take 1/2 tab nightly. week 2: take 1/2 tab twice a day. week 3: take 1/2 tab every morning and 1 tab nightly. week 4 onward: take 1 tab twice a day 08/27 memantine [id number] Nilsa Cordoba PA-C Medications Administered No information [...]
[2024-09-06] VITALS (13 sets, daily range): BP systolic 130–169; BP diastolic 70–85; PULSE 91–107; RESP 15–22; TEMP 36.9; O2SAT 94–97; BMI 27.3
--- OUTSIDE RECORDS SUMMARY | 2024-09-06 16:10 | XMS_ITS | Encounter Summary ---
Author Organization [facility] Address [address] [place] [address] Care Team Providers Care Health Assistant Name Role Phone Frw, None Primary Care Provider Unavailbailey e Tara Montilla MD Unavailable [phone] Audra Zepeda Primary Care Provider [phone] Philipp Morejon PA-C Unavailable [phone] Philipp Morejon PA-C Unavailable [phone] Reason for Visit * Reason Onset Date Comments MyChart Communication 11/04/2009 Encounter Details Date Type Department Care Team (Late st Contact Info) Description 11/04/2009 MyC Medical Advice [facility] [place] [facility] [address] [place] [address] Danisha Palafox MD [facility] [address] [place] [address] MyChart Communication Social History Tobacco Use Types Packs/Day Years Used Date Smoking Tobacco: Former Comments:smoked for 3 yrs in college Alcohol Use Standard Drinks/Week Comments No 0 (1 standard drink = 0.6 oz pur e alcohol) Comments No Sex and Gender Information Value Date Recorded Sex Assigned at Not on file Legal Sex Female 3:06 AM HEALTHCARE OR MEDICAL Gender Identity Not on file Sexual Orientation Not on file documented as of this encounter Miscellaneous Notes * Telephone Encounter - Rina Dailey MD - 11/25/2009 10:29 AM CDT How about this one too? Did this get routed back to you after Tara had requested it to? * Telephone Encounter - Janina Singh - 11/16/2009 8:30 AM CDT Please review and address if possible in Dr Palafoxs absence. * Telephone Encounter - Tara Montilla MD - 11/15/2009 12:53 PM CDT I think this is going to have to wait for Judi. Her prometrium prescription looks like it should still be valid -- it was refilled in September with 11 refills. * Telephone Encounter - MAGDALENA BRADLEY - 11/15/2009 9:17 AM CDT Can you please address as Dr. Palafox is out this week. documented in this encounter Plan of Treatment Not on file documented as of this encounter Visit Diagnoses Not on filedocumented in this encounter Care Teams Health Assistant Relationship Specialty Start Date End Date Frw, None PCP - General 01/16/07 12/14/16 Tara Montilla MD PCP - Obstetrics/Gynecology movie writer 09/26/10 Audra Zepeda PCP - General Family Practice 02/13/19 Philipp Morejon PA-C [address] [place] [address] Assigned Surgical Provider 06/30/20 Philipp Morejon PA-C [address] [place] [address] Assigned Musculoskeletal Provider 10/03/20 05/07/21 documented as of this encounter
--- OUTSIDE RECORDS SUMMARY | 2024-09-06 16:11 | XMS_ITS | Clinical Summary ---
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 8 03/07/20 16 Active rosuvastatin (CRESTOR) 10 mg tabletIndication s:hypercholester olemia Take 1 Tablet (10 mg) by mouth at bedtime. 90 Tablet 3 01/22/20 24 Active mirtazapine (REMERON) 15 mg tabletIndication s:major depressive disorder TAKE ONE TABLET (15 MG) BY MOUTH NIGHTLY AT BEDTIME 30 Tablet 11 04/14/20 24 Active melatonin 3 mg tabletIndication s:INSMONIA Take 3 mg by mouth at bedtime. Active calcium carbonate-mag hydroxid 1,000-200 mg chewIndications: dyspepsia Chew 1 Tablet by mouth once daily in the evening. Active sennosides-docus ate (SENOKOT S) (8.6-50 mg) tabletIndication s:Spinal stenosis, lumbar region, with neurogenic claudication Take 2 Tablets by mouth 2 times daily if needed for Constipation. 20 Tablet 05/26/19 25 Active acetaminophen (TYLENOL EXTRA STRGTH) 500 mg tabletIndication s:Spinal stenosis, lumbar region, with neurogenic claudication,Pos toperative pain after spinal surgery Take 1 Tablet (500 mg) by mouth every 6 hours. Max acetaminophen dose: 4000mg in 24 hrs. 05/29/19 25 Active lisinopriL 20 mg tabletIndication s:HTN (hypertension) Take 1 Tablet (20 mg) by mouth once daily. 90 Tablet 3 07/11/19 25 Active miscellaneous medical supply miscIndications: Hypoventilation As directed. Incentive spirometer to use twice daily 1 Each 07/11/19 25 Active hydroCHLOROthiaz gabe 12.5 mg tabletIndication s:HTN (hypertension) Take 1 Tablet (12.5 mg) by mouth once daily. 90 Tablet 3 07/18/19 25 Active potassium chloride 10 mEq extended-release tablet (part/cryst)Nina cations:Hypokale raj Take 1 Tablet (10 mEq) by mouth once daily. 90 Tablet 3 07/22/19 25 Active gabapentin 300 mg capsuleIndicatio ns:Lumbar radicular pain Take 1 Capsule (300 mg) by mouth three times daily. TAKE ONE CAPSULE BY MOUTH EVERY MORNING , AND ONE BY MOUTH AT BEDTIME. 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 Champion 02/10/2016 Overview (02/10/2016): Primary osteoarthritis of both knees 09/23/2015 Primary insomnia 08/09/2015 Osteoarthritis of right acromioclavicular joint 05/28/2015 Biceps tendinosis of right shoulder 05/28/2015 Complete tear of right rotator cuff, supraspinat us 05/28/2015 Calcific tendinitis of right shoulder 04/07/2015 Carpal tunnel syndrome on both sides 04/07/2015 Screening examination for venereal disease 07/22 Hand arthropathy 02/26/2013 Screen for colon cancer 05/12/2011 Overview (09/12/2022): Colonoscopy 04/2011 normal repeat in 5 years Colonoscopy 08/2022 diverticuli, repeat in 5 years Gastritis 10/01/2008 Mild episode of recurrent major depressive disor jaison 08/16/2006 Allergic rhinitis, cause unspecified Spinal stenosis, lumbar renny on, without neurogenic claudication Acquired spondylolisthesis Other specified arthropathy, other specified sit es Resolved Problems Problem Noted Date Diagnosed Date Resolved Date Seizure 03/10/2022 05/10/2023 Traumatic subdural hemorrhag e with loss of consciousness of unspecified duration, initial encounter 03/10/2022 05/15/2024 Knee osteoarthritis 07/13/2011 02/17/20 16 Carpal tunnel syndrome 11/02/201002/16 Lumbago 09/16/2015 Encounters Date Type Department Care Team Description 09/04/2024 Telephone [facility] [address] [facility] [address] [place] [address] Cardiology, Anw Appointment 09/03/2024 9:48 PM CDT - 09/04/2024 1:18 AM CDT Emergency [facility] [address] [place] [address] Dylan Martel DO Chest pain, unspecified type (Primary Dx); Wheezing Discharge Disposition: Home Self Care 09/03/2024 Travel 08/25/2024 Orders Only [facility] Scanner 1 scan: (1-Ord) PAM, XR LUMBAR SPINE 2-3V, 08/25/2024 08/07/2024 1:50 PM CDT Office Visit [facility] [address] [place] [address] Audra Zepeda MD Blood Pressure (B/P has been down, running in the 120s) 08/07/2024 Travel 07/23/2024 4:00 PM CDT Office Visit [facility] [address] [place] [address] Reji Madden MD Musculoskeletal Problem (Follow up bilateral knee pain) 07/23/2024 Travel 07/21/2024 12:30 PM CDT Office Visit [facility] [address] [facility] [address] [place] [address] Frances Kennedy, PhD, LP Neuropsychological Assessment 07/21/2024 Travel 07/10/2024 9:05 AM CDT Office Visit [facility] [address] [place] [address] Audra Zepeda MD Post-op (L2-L5 spinal fusion, 05/23/Seen at [facility], 07/07/24 for high B/P. Increased lisinopril from 10 mg to 15 mg daily) 07/10/2024 Travel 07/07/2024 2:40 PM CDT Office Visit [facility] [address] [place] [address] Tomeka Stafford PA Blood Pressure 07/07/2024 1:15 PM CDT Ancillary Procedure [facility] [place] [address] [place] [address] 07/07/2024 Travel 07/07/2024 Nurse Triage [facility] [address] [place] [address] Audra Zepeda MD High Blood Pressure 07/07/2024 Telephone [facility] [address] [place] [address] Audra Zepeda MD OTHER (HIGH BLOOD PRESSURE) 07/03/2024 Orders Only [facility] [place] [address] [place] [phone] Chucky Park MD <No scans attached> from Last 3 Months Immunizations Immunization Administration Dates Next Due COVID-19 VACCINE SPIKEVAX (M ODERNA 50MCG/0.5ML) 12YO+ PFS 01/08/2024,02/07/2023 COVID-19 vaccine (Pfizer-Bio NTech 30mcg/0.3mL) PF, MDV 07/11/2020,06/20/2020 DTaP 05/21/2008 Influenza RIV4 (Age 18+ Year s) PRESERV FREE 01/16/2020 Influenza Virus, Unspecified 03/06/2007,06/01/19 07 Influenza, CCIIV3 (Age >=6 M O) (Egg Free) 04/12/2015 Influenza, High-dose Inactivated 12/25/2017 Influenza, High-dose Quadriv alent Inactivated 01/08/2024,02/03/2022 Influenza, IIV3 (Age 6-35 mos) 12/22/2010 Influenza, IIV3 (Age >=3 years) 01/11/20 13,02/06/2012,12/22/2010,03/06,06/01/2006 Influenza, IIV4 01/19/2016 Influenza, Inactivated AIIV4 (Age 65+ Years) Preserv Free 02/07/2023 Influenza, Inactivated IIV3 (Age 65+ Years) Preserv Free 01/08/2024,02/04/2019 Pneumococcal Poly,23-Valent (Pneumovax) 02/04/2019 Pneumococcal conj 13-Valent (Prevnar 13) 04/12/2015 RSV, Bivalent Vaccine Recons tituted (Abrysvo 120MCG/0.5mL) 03/25/2023 RSV, Recombinant ADJ Reconst ituted (Arexvy 120MCG/0.5mL) 03/25/2023 Td (Age >=7 Years) 02/07/2019,10/15/1996 Td, Preservative Free (age >= 7 Years) 7 Tdap 12/22/2010,05/29/2008,05/21/2008 Tuberculin Skin Test, Unspecified 06/12/2024, Zoster (Shingrix-RZV, recombinant) 11/02/2017, Zoster (Zostavax-ZVL, live) 02/13/2012 Family History Medical History Relation Name Comments Heart Disease Father chf at age 93; at 95 Cancer-breast Maternal Aunt Cancer-colon Maternal Grandmother Heart Disease Mother [place] at 80 Hypertension Mother Other Mother glaucoma Anesthesia Malignant Hyperthermia No Family History Blood Disease No Family History Cancer-ovarian No Family History Relation Name Status Comments Father Maternal Aunt Maternal Grandmother Mother Social History Tobacco Use Types Packs/Day Years Used Date Smoking Tobacco: Former Cigarettes Q uit: 04/16/1975 Smokeless Tobacco: Never Tobacco Cessation:Counseling Given: Yes Alcohol Use Standard Drinks/Week Comments Not Currently 1 (1 standard drink = 0.6 oz pur e alcohol) wine rare PHQ-2 Answer Date Recorded PHQ-2 TOTAL SCORE 0 08/07/2024 Social Connections Answer Date Recorded Do you often feel lonely or isolated from those around you? 0 04/01/2024 Alcohol Use Answer Date Recorded How often do you have a drink containing alcohol ? 1 05/04/2021 How many drinks containing a lcohol do you have on a typical day when you are drinking? 0 05/04/2021 How often do you have five or more drinks on one occasion? 0 05/04/2021 Financial Resource Strain Answer Date R ecorded Difficulty of Paying Living Expenses 3 04/01/2024 Difficulty of Paying Living Expenses Not on file 04/01/2024 Food Insecurity Answer Date Recorded Do you worry your food will run out before you are able to buy more? 1 04/01/2024 Transportation Needs Answer Date Record ed Does lack of transportation keep you from medica l appointments? 1 04/01/2024 Does lack of transportation keep you from work, meetings or getting things that you need? 1 04/01/2024 Housing Stability Answer Date Recorded What is your housing situation today? 1 04/01/2024 Interpersonal Safety Answer Date Record ed Are you being hit, kicked, p ushed or yelled at (see row info)? No 09/03/2024 Interpersonal Safety Abuse 12 - 18 Not on file 09/03/2024 Interpersonal Safety Ambulatory Vulnerability No t on file 09/03/2024 Utilities Answer Date Recorded Do you have trouble paying f or utilities (for example, heat, electricity, water, phone)? 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 Last Filed Vital Signs Vital Sign Reading Time Taken Comments Blood Pressure 144/85 09/03/2024 9:51 PM CDT Pulse 86 09/04/2024 12:00 AM CDT Temperature 37.2 C (99 F) 09/03/2024 9:51 PM CDT Respiratory Rate 18 09/03/2024 9:51 PM CDT Oxygen Saturation 98% 09/04/2024 12:00 AM CDT Inhaled Oxygen Concentration - - Weight 75.8 kg (167 lb) 09/03/2024 9:51 PM CDT Height 152.4 cm (5') 09/03/2024 9:51 PM CDT Body Mass Index 32.61 09/03/2024 9:51 PM CDT Plan of Treatment Upcoming Encounters Date Type Department Care Team (Late st Contact Info) Description 09/11/2024 1:50 PM CDT Office Visit [facility] [address] [place] [address] Audra Zepeda MD [address] [place] [address] 09/16/2024 11:00 AM CDT Office Visit [facility] [address] [facility] [address] [place] [address] Frances Kennedy, PhD, LP [address] [facility] [address] [place] [address] Health Maintenance Due Date Last Done Comments Medicare Wellness for age 65+ 04/26/2023 04/25/2022, 12/28/2020 COVID-19 vaccine series ( season) 2024 01/08/2024, 10/12/2023, 02/07/2023, Additional history exists Mammogram for age 45-75 03/07/2025 03/07/20, 05/08/2022, 12/27/2020, Additional history exists BMI (ht and wt on same day) for age 18+ 07/07/2025 07/07/2024, 04/01/2024, 01/30/2023, Additional history exists Depression screening for age 12+ 08/07/2025 08/07/2024, 06/27/2023, 06/27/2023, Additional history exists Colonoscopy through age 75 09/13/202709/12, 09/12/2022, 09/04/2017, Additional history exists Tetanus booster 02/07/2029 02/07/2019, 11/2010, 12/22/2010, Additional history exists Lipids for age 45-75 05/15/2029 05/15/2024, 01/08/2024, 12/28/2020, Additional history exists Tdap Completed 12/22/2010, 05/17, 05/21/2008 Zoster (shingles) series for age 50+ Completed 11/02/2017, 07/31/2017, 02/13/2012 Pneumococcal series for age 50+ Completed 02/04/2019, 04/12/2015 Hepatitis C screening for age 18-79 Completed 12/28/2020 RSV vaccine for adults or Completed 03/25/2023, 03/25/2023 DEXA/DXA scan for age 65+ Completed 11/19/2023, Influenza Vaccine Completed 01/08/2024, , 01/16/2020, Additional history exists Hepatitis B series for 19+ Aged Out N o longer eligible based on patient's age to complete this topic Goals Goal Patient Goal Type Associated Problems Recent Progress Patient-Stated? Author BLOOD PRESSURE - Maintains BP less than 140/90 Blood Pressure No Ele Pruitt, CHUCK Medical Devices Implanted Type Area Inseam Leveler Device Identifier Shelf Expiration Date Model / Serial / Lot Dura Neuro 1xin Duragen Plusnon-Sut - [id number] Implanted:Qt y: 1 on 05/23/2024 by Chucky Park MD at [facility] Lumbar Vertebrae Integra [employer] Ashley [id number] 01/13/2027 [id number] / / [id number] Screw Spinal 8.5x80mm - [id number] Implanted:Qt y: 2 on 05/23/2024 by Chucky Park MD at [facility] Lumbar Vertebrae Medtronic Spine/Ortho [id number] / / Sealant Spine 5ml Duraseal Exact - [id number] Implanted:Qt y: 1 on 05/23/2024 by Chucky Park MD at [facility] Lumbar Vertebrae Integra [employer] Ashley 02/13/2025 [id number] / / [id number] Set Screw Lmbr Ant 5.5mm Solera Break Off - [id number] Implanted:Qt y: 13 on 05/23/2024 by Chucky Park MD at [facility] Lumbar [facility] Medtronic Spine/Ortho [id number] / / Deangelo Lmbr 500x5.5mm Solera 5.5/6 Stra Titnm Alloy - [id number] Implanted:Qt y: 1 on 05/23/2024 by Chucky Park MD at [facility] Lumbar Vertebrae Medtronic Spine/Ortho [id number] / / Bone 1-4mm 90cc Medtronic Chips Canclls Freeze Dried - [id number] Implanted:Qt y: 1 on 05/23/2024 by Chucky Park MD at [facility] Lumbar Vertebrae Medtronic Spine/Ortho [id number] 11/23/2027 [id number] / [id number] / [id number] Sealant Spine 5ml Duraseal Exact - [id number] Implanted:Qt y: 1 on 05/23/2024 by Chucky Park MD at [facility] Lumbar Vertebrae Integra [employer] Ashley 02/13/2025 [id number] / / [id number] Bone 1-4mm 60cc Medtronic Fine Canclls Freeze Dried - [id number] Implanted:Qt y: 1 on 05/23/2024 by Chucky Park MD at [facility] Lumbar Vertebrae Medtronic Spine/Ortho [id number] 02/01/2028 [id number] / [id number] / [id number] Putty Easypack 10cc Magnetos - [id number] Implanted:Qt y: 1 on 05/23/2024 by Chucky Park MD at [facility] Lumbar Vertebrae [employer] 01/14/2029 [id number] / / [id number] Screw Lmbr Post 5.5x50mm Solera 5.5/6 Va Cocr - [id number] Implanted:Qt y: 3 on 05/23/2024 by Chucky Park MD at [facility] Lumbar Vertebrae Medtronic Spine/Ortho [id number] / / Screw Lmbr Post 5.5x55mm Solera 5.5/6 Va Cocr - [id number] Implanted:Qt y: 1 on 05/23/2024 by Chucky Park MD at [facility] Lumbar Vertebrae Medtronic Spine/Ortho [id number] / / Screw Lmbr Post 6.5x55mm Solera 5.5/6 Va Cocr - [id number] Implanted:Qt y: 1 on 05/23/2024 by Chucky Park MD at [facility] Lumbar Vertebrae Medtronic Spine/Ortho [id number] / / Screw Lmbr Post 6.5x50mm Solera 5.5/6 Va Cocr - [id number] Implanted:Qt y: 3 on 05/23/2024 by Chucky Park MD at [facility] Lumbar Vertebrae Medtronic Spine/Ortho [id number] / / Screw Lmbr Post 6.5x40mm Solera 5.5/6 Va Cocr - [id number] Implanted:Qt y: 2 on 05/23/2024 by Chucyk Park MD at [facility] Lumbar Vertebrae Medtronic Spine/Ortho [id number] / / Screw Lmbr Post 6.5x35mm Solera 5.5/6 Va Cocr - [id number] Implanted:Qt y: 1 on 05/23/2024 by Chucky Park MD at [facility] Lumbar Vertebrae Medtronic Spine/Ortho [id number] / / Procedures Procedure Name Priority Date/Time Associated Diagnosis Comments TROPONIN T (HS) ONE TIME Timed 09/04/2024 12:[address] CHEST PE STUDY STAT 09/03/2024 11: 39 PM CDT EXTRA TUBE PISANO Today 09/03/2024 10:16 PM CDT CBC WITH AUTO DIFFERENTIAL STAT 09/03/2024 10:16 PM CDT BASIC METABOLIC PANEL STAT 09/03/2024 10:16 PM CDT TROPONIN T (HS) ACUTE W/2HR REFLEX STAT 09/03/2024 10:16 PM CDT PROTIME-INR STAT 09/03/2024 10:16 PM CDT PRO-BNP STAT 09/03/2024 10:16 PM CDT D-DIMER,QUANTITATIVE STAT 09/03/2024 10:16 PM CDT CBC WITH AUTO DIFFERENTIAL STAT 09/03/2024 10:16 PM CDT EKG 12 LEAD STAT 09/03/2024 9:55 PM CDT SCAN-RADIOLOGY REPORT 08/25/2024 12:00 AM CDT BASIC METABOLIC PANEL Routine 08/07/2024 3:09 PM CDT HTN (hypertension) Hypokalemia CBC WITH AUTO DIFFERENTIAL Routine 07/10/2024 11:04 AM CDT HTN (hypertension) COMP METABOLIC PANEL Routine 07/10/2024 11:04 AM CDT HTN (hypertension) TSH WITH REFLEX Routine 07/10/2024 11:04 AM CDT HTN (hypertension) XR SPINE LUMBAR 2 VIEWS STANDING Routine 07/07/2024 1:20 PM CDT S/P lumbar spinal fusion LIPID PANEL W REFLEX MEASURED LDL Routine 05/15/2024 4:39 PM 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 Hyperlipidemia, unspecified hyperlipidemia type XR MAMMO BILLIE BILAT SCREEN Routine 03/07/2024 3:50 PM 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 Visit for screening mammogram XR DXA BONE DENSITY 1 SITE AXIAL AND 1 SITE PERIPHERAL Routine 11/19/2023 3:47 PM CDT Lumbar stenosis with neurogenic claudication COLONOSCOPY 09/12/2022 2:01 PM CDT ANTI HCV Routine 12/28/2020 4:03 PM CDT Encounter for hepatitis C screening test for low risk patient from Last 3 Months or Most Recently Relevant to Health Maintenance Results * (ABNORMAL) TROPONIN T (HS) ONE TIME (09/04/2024 12:34 AM CDT) TROPONIN T HS 13(H) 6-10 ng/L ng/L 09/04/2024 1:00 AM CDT [facility] Blood BLOOD SPECIMEN / Unknown Butterfly / Unknown 09/04/2024 12:34 AM CDT 09/04/2024 12:40 AM CDT us Dylan Martel DO CHEMISTRY Final R esult [facility] [address] [place] [address] * CT CHEST PE STUDY (09/03/2024 11:39 PM CDT) Anatomical Region Laterality Modality CHEST, THORAX, HEART Computed To mography 09/04/2024 12:1 3 AM CDT Impressions 09/04/2024 12:13 AM CDT 1. Diffuse bronchial wall thickening suspicious for viral illness or other airways disease. 2. No pulmonary embolism identified. Please note that all CT scans at this facility use dose modulation, iterative reconstruction, and/or weight-based dosing when appropriate to reduce radiation dose to as low as reasonably achievable. Dictated by Carito Lee MD @ 09/04/2024 12:13:06 AM (Electronically Signed) Narrative 09/04/2024 12:13 AM CDT For Patients: As a result of the Cures Act, medical imaging exams and procedure reports are released immediately into your electronic medical record. You may view this report before your referring provider. If you have questions, please contact your health care provider. INDICATION: Pulmonary embolism (PE) suspected, low to intermediate prob, positive D-dimer. TECHNIQUE: CT chest PE was acquired with 100 cc Omnipaque 350 IV contrast. Axial coronal and sagittal MIP reconstructions were obtained. COMPARISON: None. FINDINGS: Heart and vasculature: Contrast opacification of the pulmonary arterial tree is adequate. No sign of pulmonary embolism. Heart size is normal. Thoracic aorta and pulmonary artery are normal in caliber.Coronary artery calcifications. Mitral annular calcifications. Lungs and pleura: Mild diffuse bronchial wall thickening. Subtle ground-glass opacities likely related to air trapping. Linear opacity in the right lower lobe likely atelectasis. No pleural effusions, pleural thickening, or pneumothorax. Lymph nodes/mediastinum: No mediastinal, hilar, or axillary adenopathy. Chest wall: No masses. Upper abdomen: Cholelithiasis without CT evidence of cholecystitis. Bones: Unremarkable for age. Procedure Note LeeCarito MD - 09/04/2024 For Patients: As a result of the Cures Act, medical imagingexams and procedure reports are released immediately into your electronicmedical record. You may view this report before your referring provider.If you have questions, please contact your health care provider. INDICATION: Pulmonary embolism (PE) suspected, low to intermediate prob, positiveD-dimer. TECHNIQUE: CT chest PE was acquired with 100 cc Omnipaque 350 IV contrast. Axialcoronal and sagittal MIP reconstructions were obtained. COMPARISON: None. FINDINGS: Heart and vasculature: Contrast opacification of the pulmonary arterialtree is adequate. No sign of pulmonary embolism. Heart size is normal.Thoracic aorta and pulmonary artery are normal in caliber.Coronary arterycalcifications. Mitral annular calcifications. Lungs and pleura: Mild diffuse bronchial wall thickening. Subtleground-glass opacities likely related to air trapping. Linear opacity inthe right lower lobe likely atelectasis. No pleural effusions, pleuralthickening, or pneumothorax. Lymph nodes/mediastinum: No mediastinal, hilar, or axillary adenopathy. Chest wall: No masses. Upper abdomen: Cholelithiasis without CT evidence of cholecystitis. Bones: Unremarkable for age. IMPRESSION: 1. Diffuse bronchial wall thickening suspicious for viral illness or otherairways disease. 2. No pulmonary embolism identified. Please note that all CT scans at this facility use dose modulation,iterative reconstruction, and/or weight-based dosing when appropriate toreduce radiation dose to as low as reasonably achievable. Dictated by Carito Lee MD @ 09/04/2024 12:13:06 AM (Electronically Signed) us Dylan Davidsoniger DO CT Final R esult * (ABNORMAL) TROPONIN T (HS) ACUTE W/2HR REFLEX (09/03/2024 10:16 PM CDT) [facility] TROPONIN T HS 13(H) 6-10 ng/L ng/L 09/03/2024 10:47 PM CDT [facility] Blood BLOOD SPECIMEN / Unknown Venipuncture / Unknown 09/03/2024 10:16 PM CDT 09/03/2024 10:20 PM CDT [facility] - 09/03/2024 10:47 PM CDT hs-cTnT (Elecsys Troponin T Gen 5) concentration (s) above the sex-specific 99th percentile (16 ng/L or greater for males or 11 ng/L or greater for females) are indicative of myocardial injury. If initial hs-cTnT <=100 ng/L at presentation, a 0h/2h ABSOLUTE (ng/L) delta change (rising or falling) of >=10 ng/L suggests a significant change, whereas a 0h/2h delta change <=3 ng/L suggests no significant change. If initial hs-cTnT >100 ng/L at presentation, a 0h/2h/ RELATIVE (percent, %) delta change of 20% is suggested to distinguish patients with acute vs. chronic myocardial injury. There are multiple etiologies that can cause hs-cTnT increases above the 99th percentile (myocardial injury) other than acute myocardial infarction. Clinical context and careful clinical evaluation are critical for diagnosis and risk-stratification. The diagnosis of acute myocardial infarction requires a rising and/or falling pattern in hs-cTnT concentrations with at least one value above the sex-specific 99th percentile PLUS at least one of the following clinical criteria: ischemic symptoms, new or presumed new significant ST-T wave changes or new LBBB, development of pathological Q waves, imaging evidence of new loss of viable myocardium or new regional wall motion abnormality, or identification of intracoronary atherothrombosis or an acute angiographic culprit on coronary angiography. In appropriate low-risk patients with a non-ischemic electrocardiogram without active chest pain with a symptom onset >3-hours without recurrence, a single initial hs-cTnT<6 ng/L identifies patient with a very low risk in emergency department patient population. us Dylan Martel DO CHEMISTRY Final R esult [facility] [address] [place] [address] * (ABNORMAL) CBC WITH AUTO DIFFERENTIAL (09/03/2024 10:16 PM T) Pathologist [facility] WHITE BLOOD COUNT 8.0 4.5 - 11.0 thou/cu mm 09/03/2024 10:25 PM [facility] RED BLOOD COUNT 3.21(L) 4.00 - 5.20 mil/cu mm 09/03/2024 10:25 PM [facility] HEMOGLOBIN 10.3(L) 12.0 - 16.0 g/dL 09/03/2024 10:25 PM [facility] HEMATOCRIT 31.9(L) 33.0 - 51.0 % 09/03/2024 10:25 PM [facility] MCV 99 80 - 100 fL 09/03/2024 10:25 PM [facility] MCH 32.1 26.0 - 34.0 pg 09/03/2024 10:25 PM [facility] MCHC 32.3 32.0 - 36.0 g/dL 09/03/2024 10:25 PM [facility] RDW 14.0 11.5 - 15.5 % 09/03/2024 10:25 PM [facility] PLATELET COUNT 298 140 - 440 thou/cu mm 09/03/2024 10:25 PM [facility] MPV 10.1 6.5 - 11.0 fL 09/03/2024 10:25 PM [facility] % NEUT 58.2 % 09/03/2024 10:25 PM [facility] % LYMPH 25.3 % 09/03/2024 10:25 PM [facility] % MONO 12.1 % 09/03/2024 10:25 PM [facility] % EOS 3.9 % 09/03/2024 10:25 PM [facility] % BASO 0.5 % 09/03/2024 10:25 PM [facility] ABSOLUTE NEUTROPHILS 4.6 1.7 - 7.0 thou/cu mm 09/03/2024 10:25 PM [facility] ABSOLUTE LYMPHOCYTES 2.0 0.9 - 2.9 thou/cu mm 09/03/2024 10:25 PM [facility] ABSOLUTE MONOCYTES 1.0(H) <0.9 thou/cu mm 09/03/2024 10:25 PM [facility] ABSOLUTE EOSINOPHILS 0.3 <0.5 thou/cu mm 09/03/2024 10:25 PM [facility] ABSOLUTE BASOPHILS 0.0 <0.3 thou/cu mm 09/03/2024 10:25 PM [facility] Blood BLOOD SPECIMEN / Unknown Venipuncture / Unknown 09/03/2024 10:16 PM CDT 09/03/2024 10:20 PM CDT us Dylan Martel DO HEMATOLOGY Final R esult [facility] [address] [place] [address] * EXTRA TUBE PISANO (09/03/2024 10:16 PM CDT) Blood BLOOD SPECIMEN / Unknown Venipuncture / Unknown 09/03/2024 10:16 PM CDT 09/03/2024 10:27 PM CDT Dylan Mratel DO LABORATORY Final R esult [facility] [address] [place] [address] * (ABNORMAL) PROTIME-INR (09/03/2024 10:16 PM CDT) [facility] INR 0.9 <1.3 09/03/2024 10:31 PM CDT [facility] PROTIME 10.5(L) 10.6 - 12.4 sec 09/03/2024 10:31 PM CDT [facility] Blood BLOOD SPECIMEN / Unknown Venipuncture / Unknown 09/03/2024 10:16 PM CDT 09/03/2024 10:20 PM CDT [facility] - 09/03/2024 10:31 PM CDT Therapeutic Range 2.0-3.0 for most anticoagulated patients 2.5-3.5 or 4.0 for high risk patients The INR is only used for patients on stable oral anticoagulant therapy. It makes no significant contribution to the diagnosis or treatment of patients whose Protime is prolonged for other reasons. INR results are increased when heparin levels exceed 1.0 U/mL, which corresponds to an aPTT >125 seconds if the patient is on UFH. us Dylan Martel DO HEMATOLOGY Final R esult [facility] [address] [place] [address] * (ABNORMAL) D-DIMER,QUANTITATIVE (09/03/2024 10:16 PM CDT) [facility] D-DIMER,QUANTI TATIVE 0.80 See comment FEU mcg/mL 09/03/2024 10:31 PM CDT [facility] D-DIMER INTERP Abnormal( A) 09/03/2024 10:31 PM CDT [facility] Blood BLOOD SPECIMEN / Unknown Venipuncture / Unknown 09/03/2024 10:16 PM CDT 09/03/2024 10:20 PM CDT [facility] - 09/03/2024 10:31 PM CDT The cut off value for exclusion of Deep Vein Thrombosis and / or Pulmonary Embolism is 0.50 FEU mcg/mL For patients greater than 50 years of age the upper limit is age dependent and was calculated with the formula: (PATIENT AGE x 0.01) FEU mcg/mL = Upper limit of normal range Dylan Martel DO HEMATOLOGY Final R [employer] [facility] Performing Organization Address [facility]/ZIP Co de Phone Number [facility] [address] [place] [address] * (ABNORMAL) BRAIN NATRIURETIC PEPTIDE (09/03/2024 10:16 PM CDT) [facility] PRO-BNP 152(H) <125 pg/mL 09/03/2024 10:59 PM CDT [facility] Blood BLOOD SPECIMEN / Unknown Venipuncture / Unknown 09/03/2024 10:16 PM CDT 09/03/2024 10:20 PM CDT Narrative [facility] - 09/03/2024 10:59 PM CDT The following cut-points have been suggested for the use of proBNP for the diagnostic evaluation of heart failure (HF) in patient with acute dyspnea. Patients with eGFR >= 60 Diagnosis (rule in CHF) <50 Years Old 450 pg/mL 50 - 75 Years Old 900 pg/mL >75 Years Old 1800 pg/mL Exclusion (rule out CHF) Age Independent 300 pg/mL A cutoff of 1200 pg/mL for patients with an eGFR <60 yields a diagnostic sensitivity of 89% and specificity of 72% for acute congestive heart failure. Dylan Martel DO SEND OUTS Final R [employer] Performing Organization Address [facility]/ZIP Co de Phone Number [facility] [address] [place] [address] * (ABNORMAL) BASIC METABOLIC PANEL (09/03/2024 10:16 PM T) Only the most recent of2 resultswithin the time period is included. SODIUM 139 136 - 145 mmol/L 09/03/2024 10:47 PM [facility] POTASSIUM 4.5 3.5 - 5.1 mmol/L 09/03/2024 10:47 PM [facility] CHLORIDE 105 98 - 107 mmol/L 09/03/2024 10:47 PM [facility] CO2,TOTAL 25 22 - 29 mmol/L 09/03/2024 10:47 PM [facility] ANION GAP 9 5 - 18 09/03/2024 10:47 PM [facility] GLUCOSE 103(H) 70 - 99 mg/dL 09/03/2024 10:47 PM [facility] CALCIUM 8.8 8.8 - 10.4 mg/dL 09/03/2024 10:47 PM [facility] Comment: Reference ranges for this test were updated on 02/19/2024 to reflect our healthy population more accurately. Reference range changes are not retroactively applied to results, but previous results using the same methodology can be interpreted in the context of the new reference range. BUN 28(H) 8 - 23 mg/dL 09/03/2024 10:47 PM [facility] CREATININE 0.75 0.50 - 0.90 mg/dL 09/03/2024 10:47 PM [facility] BUN/CREAT RATIO 37(H) 10 - 20 10:47 PM [facility] eGFR 85(L) >90 mL/min/1. 73m2 09/03/2024 10:47 PM [facility] Comment:As of 2021, eG FR is calculated by the CKD-EPI creatinine equation without race adjustment. eGFR can be influenced by muscle mass, exercise, and diet. The reported eGFR is an estimation only and is only applicable if the renal function is stable. Blood BLOOD SPECIMEN / Unknown Venipuncture / Unknown 09/03/2024 10:16 PM CDT 09/03/2024 10:20 PM CDT us Dylan Martel DO CHEMISTRY Final R esult [facility] [address] [place] [address] * EKG 12 LEAD (09/03/2024 9:55 PM CDT) Interpretation Normal sinus rhythm Normal ECG BEYOND NOW Ventricular Rate 89 BPM BEYOND NOW Atrial Rate 89 BPM BEYOND NOW P-R Interval 202 ms BEYOND NOW QRS Duration 76 ms BEYOND NOW QT 352 ms BEYOND NOW QTc 428 ms BEYOND NOW P Harlan 53 degrees BEYOND NOW R Harlan 45 degrees BEYOND NOW T Harlan 49 degrees BEYOND NOW 09/03/2024 9:55 PM CDT 09/03/2024 10:39 PM CDT us Dylan Martel DO EKG ORD Final R esult Performing Organization Address City/[facility] Co de Phone Number BEYOND NOW [place], [place] * SCAN-RADIOLOGY REPORT (08/25/2024 12:00 AM CDT) Anatomical Region Laterality Modality Other us Scanner OTHER Final Result * TSH WITH REFLEX (07/10/2024 11:04 AM CDT) TSH W/REFLEX TO FT4 1.18 0.40 - 4.50 mIU/L [facility] Blood BLOOD SPECIMEN / Unknown 07/10/2024 11:04 AM CDT 07/10/2024 11:05 AM CDT us Audra Zepeda MD CHEMISTRY Final Result [facility] [address] [place] [address], [facility] [address] [place] [address] * (ABNORMAL) CBC AND DIFFERENTIAL (07/10/2024 11:04 AM CDT) [facility] Signature WHITE BLOOD CELL COUNT 6.6 3.8 - 10.8 Thousand/u L [facility] RED BLOOD CELL COUNT 3.37(L) 3.80 - 5.10 Million/uL [facility] HEMOGLOBIN 10.7(L) 11.7 - 15.5 g/dL [facility] HEMATOCRIT 33.5(L) 35.0 - 45.0 % [facility] MCV 99.4 80.0 - 100.0 fL [facility] MCH 31.8 27.0 - 33.0 pg [facility] MCHC 31.9(L) 32.0 - 36.0 g/dL [facility] Comment: For adults, a slight decrease in the calculated MCHC value (in the range of 30 to 32 g/dL) is most likely not clinically significant; however, it should be interpreted with caution in correlation with other red cell parameters and the patient's clinical condition. RDW 13.8 11.0 - 15.0 % [facility] PLATELET COUNT 418(H) 140 - 400 Thousand/u L [facility] MPV 10.6 7.5 - 12.5 fL [facility] ABSOLUTE NEUTROPHILS 4,389 1,500 - 7,800 cells/uL [facility] ABSOLUTE LYMPHOCYTES 1,406 850 - 3,900 cells/uL [facility] ABSOLUTE MONOCYTES 601 200 - 950 cells/uL [facility] ABSOLUTE EOSINOPHILS 172 15 - 500 cells/uL [facility] ABSOLUTE BASOPHILS 33 0 - 200 cells/uL [facility] NEUTROPHILS 66.5 % [facility] LYMPHOCYTES 21.3 % [facility] MONOCYTES 9.1 % [facility] EOSINOPHILS 2.6 % [facility] BASOPHILS 0.5 % [facility] Blood BLOOD SPECIMEN / Unknown 07/10/2024 11:04 AM CDT 07/10/2024 11:05 AM CDT Audra Zepeda MD HEMATOLOGY Final Result [facility] [address] [place] [address], [facility] [address] [place] [address] * (ABNORMAL) COMP METABOLIC PANEL (07/10/2024 11:04 AM CDT) Pathologist [facility] GLUCOSE 96 65 - 99 mg/dL [facility] Comment: Fasting reference interval UREA NITROGEN (BUN) 14 7 - 25 mg/dL [facility] CREATININE 0.59(L) 0.60 - 1.00 mg/dL [facility] EGFR 96 > OR = 60 mL/min/1.7 3m2 [facility] BUN/CREATININE RATIO 24(H) 6 - 22 (calc) [facility] SODIUM 141 135 - 146 mmol/L [facility] POTASSIUM 3.3(L) 3.5 - 5.3 mmol/L [facility] CHLORIDE 104 98 - 110 mmol/L [facility] CARBON DIOXIDE 27 20 - 32 mmol/L [facility] CALCIUM 9.4 8.6 - 10.4 mg/dL [facility] PROTEIN, TOTAL 7.1 6.1 - 8.1 g/dL [facility] ALBUMIN 4.2 3.6 - 5.1 g/dL [facility] GLOBULIN 2.9 1.9 - 3.7 g/dL (calc) [facility] ALBUMIN/GLOBULIN RATIO 1.4 1.0 - 2.5 (calc) [facility] BILIRUBIN, TOTAL 0.7 0.2 - 1.2 mg/dL [facility] ALKALINE PHOSPHATASE 131 37 - 153 U/L [facility] AST 11 10 - 35 U/L [facility] ALT 10 6 - 29 U/L [facility] Blood BLOOD SPECIMEN / Unknown 07/10/2024 11:04 AM CDT 07/10/2024 11:05 AM CDT Audra Zepeda MD CHEMISTRY Final Result [facility] [address] [place] [address], [facility] [address] [place] [address] * XR SPINE LUMBAR 2 VIEWS STANDING (07/07/2024 1:20 PM CDT) Anatomical Region Laterality Modality Spine, LUMBAR SPINE Digital Radi ography 07/08/2024 11:0 9 AM CDT Narrative 07/08/2024 11:09 AM CDT For Patients: As a result of the Cures Act, medical imaging exams and procedure reports are released immediately into your electronic medical record. You may view this report before your referring provider. If you have questions, please contact your health care provider. Indication: Status post lumbar spinal fusion. Technique: AP and lateral views of the lumbar spine. Comparison: Lumbar spine radiograph 05/26/2024 Findings/Impression: Posterior decompression at L3 and L4 and posterior spinal fusion with bilateral pedicle screw and deangelo instrumentation extending from L1 through the sacroiliac joints and bilateral posterolateral bone graft is unchanged in appearance when compared to the prior study. Degenerative changes and subluxations within the lumbar spine are unchanged. No instrumentation failure is identified. Dictated by Sharan Lynn MD @ 07/08/2024 11:09:10 AM (Electronically Signed) Procedure Note Sharan Lynn MD - 07/08/2024 For Patients: As a result of the Cures Act, medical imagingexams and procedure reports are released immediately into your electronicmedical record. You may view this report before your referring provider.If you have questions, please contact your health care provider. Indication: Status post lumbar spinal fusion. Technique: AP and lateral views of the lumbar spine. Comparison: Lumbar spine radiograph 05/26/2024 Findings/Impression: Posterior decompression at L3 and L4 and posterior spinal fusion withbilateral pedicle screw and deangelo instrumentation extending from L1 throughthe sacroiliac joints and bilateral posterolateral bone graft is unchangedin appearance when compared to the prior study. Degenerative changes andsubluxations within the lumbar spine are unchanged. No instrumentationfailure is identified. Dictated by Sharan Lynn MD @ 07/08/2024 11:09:10 AM (Electronically Signed) us Chucky Park MD GENERAL IMAGING Final Result * LIPID PANEL W REFLEX MEASURED LDL (05/15/2024 4:39 PM 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) CHOLESTEROL, TOTAL 187 <200 mg/dL [facility] HDL CHOLESTEROL 79 > OR = 50 mg/dL [facility] TRIGLYCERIDES 128 <150 mg/dL [facility] LDL-CHOLESTEROL 86 mg/dL (calc) [facility] Comment: Reference range: <100 Desirable range <100 mg/dL for primary prevention; <70 mg/dL for patients with CHD or diabetic patients with > or = 2 CHD risk factors. LDL-C is now calculated using the Tom-Елена calculation, which is a validated novel method providing better accuracy than the Friedewald equation in the estimation of LDL-C. Tom SS et al. DOROTHEA. 2013;310(19): 9471-2577 (http://education.[employer].Unemployment-Extension.Org/faq/EMH274) CHOL/HDLC RATIO 2.4 <5.0 (calc) [facility] NON HDL CHOLESTEROL 108 <130 mg/dL (calc) [facility] Comment: For patients with diabetes plus 1 major ASCVD risk factor, treating to a non-HDL-C goal of <100 mg/dL (LDL-C of <70 mg/dL) is considered a therapeutic option. Blood BLOOD SPECIMEN / Unknown 05/15/2024 4:39 PM 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 05/15/2024 4:40 PM 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 Audra Zepeda MD CHEMISTRY Final Result [facility] [address] [place] [address], [facility] [address] [place] [address] * XR MAMMO BILLIE BILAT SCREEN (03/07/2024 3:50 PM 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) Anatomical Region Laterality Modality BREASTS, Breast Left, Breast Right Bilateral Mammography Impressions 03/10/2024 3:31 PM 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 There is no radiographic evidence for malignancy. Recommend annual mammograms. MAMMOGRAM ASSESSMENT: ACR 1 Negative PATIENTS: You will also receive a letter with your examination results in an easy to read format. If you have questions about your results, please contact your referring provider. Narrative 03/10/2024 3:31 PM 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 For Patients: As a result of the Cures Act, medical imaging exams and procedure reports are released immediately into your electronic medical record. You may view this report before your referring provider. If you have questions, please contact your health care provider. XR MAMMO BILLIE BILAT SCREEN [[id number]] CLINICAL HISTORY: This is an asymptomatic 74 y.o. patient. INDICATION FOR EXAM: Mammogram Screening. TECHNIQUE: CC & MLO views were obtained. This study was evaluated with the assistance of Computer-Aided Detection. Breast Tomosynthesis was used in interpretation. COMPARISON FILM: Yes 05/08/22 [facility] 12/27/20 [employer] FINDINGS: The breasts are heterogeneously dense, which may obscure small masses. There are no dominant masses, suspicious micro calcifications or areas of architectural distortion. Audra Zepeda MD MAMMO Final Result * (ABNORMAL) XR DXA BONE DENSITY 1 SITE AXIAL AND 1 SITE PERIPHERAL (11/19/2023 3:47 PM CDT) Anatomical Region Laterality Modality LUMBAR SPINE Other Impressions 11/20/2023 2:14 PM CDT Osteopenia. RECOMMENDATIONS: The National Osteoporosis Foundation recommends pharmacologic treatment for patients with T-scores of -2.5 or less, patients with prior history of fragility fractures, or patients with 10-year probability of greater than 3% at hips or greater than 20% of suffering major osteoporotic fractures. Recommend continued optimization of calcium and vitamin D intake through dietary means and/or supplementation and regular exercise. Repeat scan recommended in 3-5 years. Sylvia Anaya PA-C [facility] 11/20/2023 Narrative 11/20/2023 2:14 PM CDT For Patients: Results are automatically released to your [facility] ([facility]) account once available, in compliance with federal regulations. This means that you may see your results before your provider has had a chance to review them. Please allow 2-3 business days for your provider to comment on the results. XR DXA Bone Mineral Density (BMD) EXAM LOCATION: [address] [address] PATIENT NAME: Alicia Mccormack DATE OF : 1950 EXAM DATE: 11/19/2023 REQUESTING PROVIDER: Chucky Park MD GENDER AT : female HEIGHT: 5' 1 (02/25/2023) WEIGHT: 141 lb 3.2 oz (08/02/2023) MENOPAUSAL STATUS: Postmenopausal RACE/ETHNICITY: White RISK FACTORS: Smoking (prior) and White Race CURRENT MEDICATION FOR BONE LOSS: NONE INDICATION: LUMBAR STENOSIS WITH NEUROGENIC CLAUDICATION, ONGOING LOW BACK PAIN. POSTMENOPAUSAL. COMPARISON DATE(S): 2019 DXA scans are compared to prior studies for a patient only when the two (or more) studies were performed on the same scanner. It is not possible to compare data generated on one scanner to data from another because there are not standards in DXA equipment. This applies even if the two scanners are made by the same stock speculator. PROCEDURE: Dual-energy x-ray absorptiometry performed with routine technique. Reporting is completed in the form of a T-score. The T-score represents the standard deviation from peak bone mass based on young healthy adult. A Z-score is used for diagnosis in premenopausal women, and for men under the age of 50. FINDINGS: RESULTS FEMUR Left femoral neck BMD: 0.947 g/cm2 T-Score: - 0.7 Z-Score: + 1.1 Change from prior in 2019: Decrease 8.1%. Right femoral neck BMD: 0.874 g/cm2 T-Score: - 1.2 Z-Score: + 0.6 Change from prior in 2019: Decrease 12.2%. Left hip BMD: 1.078 g/cm2 T-Score: + 0.6 Z-Score: + 2.1 Change from prior in 2019: Decrease 5.9%. Right hip BMD: 1.029 g/cm2 T-Score: + 0.2 Z-Score: + 1.7 Change from prior in 2019: Decrease 6.1%. RESULT FOREARM Left Forearm distal radius BMD: 0.698 g/cm2 T-Score: + 0.4 Z-Score: + 2.4 Change from prior in 2019: Decrease 5.4%. WHO criteria: Normal: T-score at or above -1 SD Osteopenia: T-score between -1.1 and -2.4 SD Osteoporosis: T-score at or below -2.5 SD FRAX RISK CALCULATION (USED FOR OSTEOPENIA ONLY): 10-year probability of major osteoporotic fracture: 9.5%. 10-year probability of hip fracture: 1.2%. us Chucky Park MD DEXA Final Result * COLONOSCOPY (09/12/2022 2:01 PM CDT) 09/12/2022 2:01 PM CDT Narrative Transcriptions Tom Shay MD - 09/12/2022 4:03 PM CDT Patient Name: Alicia Mccormack Procedure Date: 09/12/2022 Gender: Female Date of : 1950 Admit Type: Outpatient Procedure: Colonoscopy Proceduralist: Tom Shay MD , Alanna Duval (Nurse), Charisma Nugent (Nurse) Indications/Pre-Op Diagnosis: Colon cancer screening in patient with 1st-degree relative having advanced adenomaof the colon before age 60 Medications: Fentanyl 100 micrograms IV, Midazolam 3 mgIV, The level of sedation administered wasmoderate Procedure Description: The patient had risks, benefits and alternatives explained to andgave informed consent. The patient had a stable cardiopulmonary status and judged an adequate candidate for conscious sedation. The endoscope [id number]-[id number] was passed through the anus andadvanced to the cecum, identified by appendiceal orifice and ileocecal valve.The colonoscopy was performed without difficulty. The patient toleratedthe procedure well. The quality of the bowel preparation was good. The ileocecal valve, appendiceal orifice, and rectum were photographed. Complications: No immediate complications. Estimated Blood Loss & Specimen: Estimated blood loss: none. Specimen collected - None Findings: The perianal and digital rectal examinations were normal. Scattered small-mouthed diverticula were found in the sigmoidcolon. The exam was otherwise without abnormality. Impressions/Post-Op Diagnosis: - Diverticulosis in the sigmoid colon. - The examination was otherwise normal. - No specimens collected. Recommendation: - Patient has a contact number available for emergencies. The signsand symptoms of potential delayed complications were discussed with the patient. Return to normal activities tomorrow. Written discharge instructions were provided to the patient. - Resume previous diet. - Continue present medications. - Repeat colonoscopy in 5 years for screening purposes. Moderate Sedation: A time out was performed before the procedure. Moderate (conscious) sedation was administered by the endoscopy nurse and supervised bythe endoscopist. The following parameters were monitored: oxygensaturation, heart rate, blood pressure, EKG, CO2, respiratory rate, adequacy of pulmonary ventilation and reponse to care. Please refer to the patient's medical record flowsheets and nursing notes for moderate sedation details. Total physician intraservice time was 15 minutes. Tom Shay MD 09/12/2022 4:03:40 PM This report has been signed electronically. Note Initiated On: 09/12/2022 2:01 PM Procedure Code(s): --- Professional --- 72337, Colonoscopy, flexible; diagnostic, including collection of specimen(s) bybrushing or washing, when performed (separateprocedure) Diagnosis Code(s): --- Professional --- Z83.71, Family history of colonic polyps K57.30, Diverticulosis of large intestine without perforation or abscess withoutbleeding CPT copyright 2021 [employer]. All rights reserved. The codes documented in this report are preliminary and upon unit support representative reviewmay be revised to meet current compliance requirements. Scope In: 3:46:45 PM Scope Withdrawal Time 0 hours 6 minutes 4 seconds Scope Out: 3:58:50 PM us Tom Shay MD PROCEDURE ORD Final Res ult * ANTI HCV (12/28/2020 4:03 PM CDT) HEPATITIS C ANTIBODY Non-React gary Non-React gary 12/28/2020 9:08 PM CDT [facility] [facility] Comment:Antibodies to HCV no t detected; does not exclude the possibility of exposure to HCV. Blood BLOOD SPECIMEN / Unknown Venipuncture / Unknown 12/28/2020 4:03 PM CDT 12/28/2020 4:03 PM CDT us Audra Zepeda MD SEND OUTS Final Result [facility] [address] [place] [address], [place] from Last 3 Months or Most Recently Relevant to Health Maintenance Insurance MEDICARE PART B HB ONLY BLUE CROSS LIME BLUE MR PB ONLY BLUE CROSS LIME BLUE HB ONLY MEDICARE PART A HB ONLY * Guarantor: Cesar Mccormack Account Type Relation to Patient Date of Phone Billing Address Personal/Family Spouse 1950 [phone] (Work) [address] [place] [address] Advance Directives Documents on File Type Date Recorded Patient Seasonal Customer Service Associate Expl anation Healthcare Directive 05/23/2024 6:40 AM * Full Code (Latest Code Status on File) Date Activated Date Inactivated Comments 05/23/2024 6:47 PM 05/29/2024 2:48 PM Question Answer Comments Code Status Discussion: Other * Full Code Date Activated Date Inactivated Comments 05/23/2024 6:40 AM 05/23/2024 6:47 PM Question Answer Comments Code Status Discussion: Unable to Assess Preferences, Provider to review later * Full Code Date Activated Date Inactivated Comments 02/25/2023 4:24 AM 02/26/2023 3:32 PM Question Answer Comments Code Status Discussion: Reviewed Preferences Care Teams Functional Tester Typewriters Relationship Specialty Start Date End Date Audra Zepeda MD [address] [place] [address] PCP - General Family Practice 10/24/16 Chris Terry MD [address] [place] [address] Psychiatry Psychiatry 10/28/22
--- OUTSIDE RECORDS SUMMARY | 2024-09-06 16:11 | XMS_ITS | Encounter Summary ---
Author Organization [facility] Address [address] [place] [address] Care Team Providers Care System Software Programmer Name Role Phone Frw, None Primary Care Provider Unavailabl e Tara Montilla MD Unavailable [phone] Audra Zepeda Primary Care Provider Philipp Morejon PA-C Unavailable [phone] Philipp Morejon PA-C Unavailable [phone] Encounter Details Date Type Department Care Team (Late st Contact Info) Description 02/14/2008 MyC Medical Advice [facility] [place] HOP WORKER [address] [place] [phone] Danisha Palafox MD [facility] [address] [place] [address] Social History Tobacco Use Types Packs/Day Years Used Date Smoking Tobacco: Former Comments:smoked for 3 yrs in college Alcohol Use Standard Drinks/Week Comments No 0 (1 standard drink = 0.6 oz pur e alcohol) Comments No Sex and Gender Information Value Date Recorded Sex Assigned at Not on file Legal Sex 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 Gender Identity Not on file Sexual Orientation Not on file documented as of this encounter Plan of Treatment Not on file documented as of this encounter Visit Diagnoses Not on filedocumented in this encounter Care Teams System Software Programmer Relationship Specialty Start Date End Date Frw, None PCP - General 01/16/07 12/14/16 Tara Montilla MD PCP - Obstetrics/Gynecology director post 09/26/10 Audra Zepeda PCP - General Family Practice 02/13/19 Philipp Morejon PA-C [address] [address] Assigned Surgical Provider 06/30/20 Philipp Morejon PA-C [address] [place] [address] Assigned Musculoskeletal Provider 10/03/20 05/07/21 documented as of this encounter
--- OUTSIDE RECORDS SUMMARY | 2024-09-06 16:11 | XMS_ITS | Encounter Summary ---
Author Organization [facility] Address [address] [place] [address] Care Team Providers Care Dry Sand Molder Name Role Phone Frw, None Primary Care Provider Unavailbailey e Tara Montilla MD Unavailable [phone] Audra Zepeda Primary Care Provider Philipp Morejon PA-C Unavailable [phone] Philipp Morejon PA-C Unavailable [phone] Reason for Visit * Reason Onset Date Comments MyChart Communication 10/12/2006 Encounter Details Date Type Department Care Team (Late st Contact Info) Description 10/08/2006 MyC Medical Advice [facility] [place] [employer]FT[employer]AN [address] [place] [address] Danisha Palafox MD [facility] [address] [place] [address] MyChart Communication Social History Tobacco Use Types Packs/Day Years Used Date Smoking Tobacco: Former Comments:smoked for 3 yrs in college Alcohol Use Standard Drinks/Week Comments No 0 (1 standard drink = 0.6 oz pur e alcohol) Comments No Sex and Gender Information Value Date Recorded Sex Assigned at Not on file Legal Sex 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 Gender Identity Not on file Sexual Orientation Not on file documented as of this encounter Plan of Treatment Not on file documented as of this encounter Visit Diagnoses Not on filedocumented in this encounter Care Teams Dry Sand Molder Relationship Specialty Start Date End Date Frw, None PCP - General 01/16/07 12/14/16 Tara Montilla MD PCP - Obstetrics/Gynecology climate change risk assessor 09/26/10 Audra Zepeda PCP - General Family Practice 02/13/19 Philipp Morejon PA-C [address] [place] [address] Assigned Surgical Provider 06/30/20 Philipp Morejon PA-C [address] [place] [address] Assigned Musculoskeletal Provider 10/03/20 05/07/21 documented as of this encounter
--- OUTSIDE RECORDS SUMMARY | 2024-09-06 16:11 | XMS_ITS | Clinical Summary ---
Author Organization [facility] Address [address] [facility] , [address] [place] [address] Phone Care Team Providers Care Seafood Fisherman Name Role Phone Mariam Becerra Unavailable Unavailable Conditions or Problems Problem Name Problem Code Onset Date Status Entry Date Provider Comment Standard Description Annotate Psychomotor deficit 987846489 (SNOMED CT) 04/28 Active 04/28 aJson Bunn MD Finding of general physiological development Personal history of traumatic brain injury 958512225 (SNOMED CT) 04/28 Active 04/28 Jason Bunn MD History of head injury Cognitive changes 519995293 (SNOMED CT) 04/28 Active 04/28 Jason Bunn MD Impaired cognition NUMBNESS/TING LING 782.0 (ICD-9-CM) 10/19 Resolved 10/19 Jason Bunn MD Disturbance of skin sensation HAND PAIN 24817259 (SNOMED CT) 10/19 Resolved 10/19 Jaosn Bunn MD Hand pain CARPAL TUNNEL SYNDROME 02437940 (SNOMED CT) 10/19 Active 10/19 Jc Carcamo MD Carpal tunnel syndrome HAND PAIN 26071000 (SNOMED CT) 10/19 Removed 10/19 Jc Carcamo MD Hand pain NUMBNESS/TING LING 782.0 (ICD-9-CM) 10/19 Removed 10/19 Jc Carcamo MD Disturbance of skin sensation Medications Medication Instructions Start Date Stop Date Generic Name NDC Provider HYDROCODONE-ACETAMIN OPHEN 5-300 MG TABS NOT SURE 08/27 hydrocodone-aceta minophen 50888306134 Nilsa Cordoba PA-C IPRATROPIUM BROMIDE 0.03 % SOLN Inhale 2 spray into both nostrils three times a day 01/06 ipratropium bromide 76656496705 Nilsa Cordoba PA-C Ktzbg-7-XLC-EPA-Fish Oil 1,000 mg (120 mg-180 mg) cap Take 1 capsule by mouth once a day 05/09 120 mg-180 mg Nilsa Cordoba PA-C HYDROCHLOROTHIAZIDE 12.5 MG TABS hydrochlorothiaz i de 78639397863 Nilsa Cordoba PA-C LISINOPRIL 20 MG TABS lisinopril 38875075047 Nilsa Cordoba DEREK-C EQ ACETAMINOPHEN 500 MG TABS acetaminophen 26831101132 Nilsa Cordoba DEREK-C DONEPEZIL HCL 5 MG TABS 1 tablet by mouth once a day 04/28 donepezil 15931541549 Nilsa Cordoba PA-C MEMANTINE HCL 10 MG TABS week 1: take 1/2 tab nightly. week 2: take 1/2 tab twice a day. week 3: take 1/2 tab every morning and 1 tab nightly. week 4 onward: take 1 tab twice a day 08/27 memantine 98411832728 Nilsa Cordoba DEREK-C DONEPEZIL HCL 5 MG TABS 1 tablet by mouth once a day 04/28 donepezil 26068029813 Jason Bunn MD GABAPENTIN 300 MG CAPS TAKE ONE CAPSULE BY MOUTH EVERY MORNING, TAKE ONE CAPSULE MIDDAY, AND TAKE 2 CAPSULES (600 MG TOTAL) AT BEDTIME 05/03 gabapentin 62141945319 Jason Bunn MD MIRTAZAPINE 15 MG TABS Take 1 tablet by mouth every night 09/04 mirtazapine 35722168758 Jason Bunn MD IPRATROPIUM BROMIDE 0.03 % SOLN Inhale 2 spray into both nostrils three times a day 01/06 ipratropium bromide 59590581918 Jason Bunn MD ESTRADIOL 0.025 MG/24HR PTWK 04/29 estradiol 85051956100 Jason Bunn MD PROGESTERONE 100 MG CAPS Take 3 capsule by mouth every night 05/06 progesterone micronized 44061861461 Jason Bunn MD LORATADINE 10 MG TABS Take 1 tablet by mouth once a day 08/24 loratadine 63643090354 Jason Bunn MD BETAMETHASONE SOD PHOS & ACET 6 (3-3) MG/ML SUSP 9 mg 02/26 betamethasone acet,sod phos 74681373717 Jason Bunn MD BUPROPION HCL ER (SR) 100 MG HC46O-FYT Take 1 tablet by mouth every morning 11/03 bupropion hcl 59201712572 Jason Bunn MD ROSUVASTATIN CALCIUM 10 MG TABS Take 1 tablet by mouth every night rosuvastatin 93176720776 Jason Bunn MD Udsle-2-TUD-EPA-Fish Oil 1,000 mg (120 mg-180 mg) cap Take 1 capsule by mouth once a day 05/09 120 mg-180 mg Jason Bunn MD HYDROCODONE-ACETAMIN OPHEN 5-300 MG TABS NOT SURE 08/27 hydrocodone-aceta minophen 65010361044 Jason Bunn MD MELATONIN 3 MG TABS melatonin 0986009117 6 Jason Bunn MD ROSUVASTATIN CALCIUM 10 MG TABS Take 1 Tablet (10 mg) by mouth at bedtime. 02/26 rosuvastatin 17259051509 QIEUSER QIEUSER PROGESTERONE 100 MG CAPS Take 3 capsules by mouth at bedtime. 05/06 progesterone micronized 90689274411 QIEUSER QIEUSER Yiscu-3-KQM-EPA-Fish Oil 1,000 mg (120 mg-180 mg) cap Take 1 Capsule (1,000 mg) by mouth once daily. 05/09 120 mg-180 mg QIEUSER QIEUSER MIRTAZAPINE 15 MG TABS Take 1 Tablet (15 mg) by mouth at bedtime. 09/04 mirtazapine 16549418090 QIEUSER QIEUSER LORATADINE 10 MG TABS Take 1 tablet by mouth once daily. 08/24 loratadine 97496068485 QIEUSER QIEUSER IPRATROPIUM BROMIDE 0.03 % SOLN Inhale 2 Sprays into affected nostril(s) three times daily. Empire dose in each nostril. 01/06 ipratropium bromide 42057678518 QIEUSER QIEUSER GABAPENTIN 300 MG CAPS TAKE ONE CAPSULE BY MOUTH EVERY MORNING, TAKE ONE CAPSULE MIDDAY, AND TAKE 2 CAPSULES (600 MG TOTAL) AT BEDTIME 05/03 gabapentin 05026765671 QIEUSER QIEUSER ESTRADIOL 0.025 MG/24HR PTWK 04/29 estradiol 86891625258 QIEUSER QIEUSER BUPROPION HCL ER (SR) 100 MG [id number]-OJW TAKE ONE TABLET BY MOUTH ONCE DAILY IN THE MORNING 11/03 bupropion hcl 82140544995 QIEUSER QIEUSER BETAMETHASONE SOD PHOS & ACET 6 (3-3) MG/ML SUSP 9 mg Intra-Articul ar 02/26 betamethasone acet,sod phos 19034620505 QIEUSER QIEUSER Medications Administered No information available. Allergies, Adverse Reactions, Alerts Allergy Name Reaction Description Start Date Severity Statu s Provider SOY PROTEIN Hives Mild Active Dylan Ja recki MOLD Headache Mild Active Dylan Jare cki LORAZEPAM *Unknown Moderate Active Dylan Jare cki HYDROCODONE Nausea And Vomiting Critical Active Dylan Jarecki Results Date Name Value Unit Range Flag Description Internal Other: Authorizatio n - OBS AUTHORIZEDBY DONE person g iving authorization PTSTAUTHDT done PT Startin g Authorization Date Office Visit: Office Visit f ax DEMENTIA2 Assessment of cognition performed and results reviewed. Total score [MMSE] [id number] Moderate Total sco re [MoCA] MOCA SCORE 13 Total scor e [MMSE] Internal Other: Verbal Autho rization/Emergency Contact - OBS VERBAL_EMER Done Verbal authorization and emergency contact Replaced Document: (P) CBC ( INCLUDES DIFF/PLT), C-REACTIVE PROTEIN, FOLATE, SER ... [id number] * GE use only - for Link[employer]ic import when terms are not otherwise specified AMMONIA P * umol/L Ammonia [Mass/volume] in Plasma TSH * u[iU]/mL Thyrotropin [Units/volume] in Serum or Plasma FOLATE * ng/mL Folate [Mass/volume] in Serum or Plasma CRP * mg/dL C reactive protein [Mass/volume] in Serum or Plasma BASOPHIL % 0.7 % N Basophils/ 100 leukocytes in Blood by Manual count EOSINOPHIL % 0.9 % N Eosinoph ils/100 leukocytes in Blood by Manual count MONOCYTE % 9.3 % N Monocytes/ 100 leukocytes in Blood by Automated count LYMPHS % 22.0 % N Lymphocytes/ 100 leukocytes in Blood by Automated count PMN % 67.1 % N Neutrophils/1 00 leukocytes in Blood by Automated count BASOPH COUNT 57 CELLS/UL 10*3/mm3 0-200 N Bas ophils [#/volume] in Blood by Manual count EOS COUNT 74 CELLS/UL 10*3/mm3 15-500 N eosino fuad count, blood MONOSCT AUTO 763 CELLS/UL 10*3/uL 200-950 N Mon ocytes [#/volume] in Blood by Automated count LYMPH COUNT 1804 CELLS/UL 10*3/mm3 850-3900 N l ymphocyte count, blood NEUTRO COUNT 5502 CELLS/UL 10*3/mm3 8961-6805 N neutrophil count, blood MPV 11.2 fL 7.5-12.5 N Platelet leyt n volume [Entitic volume] in Blood by Suzy PLATELETS 343 THOUSAND/UL 10*3/mm3 140-[address] atelets [#/volume] in Blood by Automated count RDW 11.8 % 11.0-15.0 N Erythrocyte distribution width [Ratio] by Automated count MCHC 33.8 G/DL 32.0-36.0 N MCHC [Mass/volume] by Automated count MCH 32.6 pg 27.0-33.0 N MCH [Entiti c mass] by Automated count MCV 96.5 fL 80.0-100. 0 N MCV [Entitic volume] by Automated count HCT 36.1 % 35.0-45.0 N Hematocrit [Volume Fraction] of Blood by Automated count HGB 12.2 g/dL 11.7-15.5 N Hemoglobin [Mass/volume] in Blood RBC 3.74 MILLION/UL 10*6/mm3 3.80-5.10 L Er ythrocytes [#/volume] in Blood by Automated count WBC 8.2 THOUSAND/UL 10*3/mm3 3.8-10.8 N Deandra kocytes [#/volume] in Blood by Automated count Office Visit: Office Visit f ax MEDS [...] Order exclud ed from report: Pending order Neuropsychology Evaluation Pending order AD-Detect Amyloi d Beta 42/40 Pending order Ammonia Pending order C Reactive Prote in (CRP) Qn Pending order CBC with Diff/Pl atelet Pending order Folate (Folic Ac id) Serum Pending order TSH Pending order AD-Detect Amyloi d Beta 42/40 Pending order Ammonia Pending order C Reactive Prote in (CRP) Qn Pending order CBC with Diff/Pl atelet Pending order Folate (Folic Ac id) Serum Pending order TSH Pending order AD-Detect Amyloi d Beta 42/40 Pending order Ammonia Pending order C Reactive Prote in (CRP) Qn Pending order CBC with Diff/Pl atelet Pending order Folate (Folic Ac id) Serum Pending order TSH Pending order Neuropsychology Evaluation Pending order AD-Detect Amyloi d Beta 42/40 Pending Order exclud ed from report: Pending order Ammonia Pending Order exclud ed from report: Pending order AD-Detect Amyloi d Beta 42/40 Pending Order exclud ed from report: Pending order Ammonia Pending Order exclud ed from report: Pending order C Reactive Prote in (CRP) Qn Pending Order exclud ed from report: Pending order CBC with Diff/Pl atelet Pending Order exclud ed from report: Pending order Folate (Folic Ac id) Serum Pending Order exclud ed from report: Pending order TSH Pending Order exclud ed from report: Pending order AD-Detect Amyloi d Beta 42/40 Pending Order exclud ed from report: Pending order Ammonia Pending Order exclud ed from report: Pending order C Reactive Prote in (CRP) Qn Pending Order exclud ed from report: Pending order CBC with Diff/Pl atelet Pending Order exclud ed from report: Pending order Folate (Folic Ac id) Serum Pending Order exclud ed from report: Pending order TSH Pending Order exclud ed from report: Procedures Code Procedure Name Date Entry Date ORDERS Occupational Therapy ORDERS Occupational Therapy ORDERS Patient Instructions ORDERS Patient Instructions ORDERS [facility] for Patients Handout ORDERS Dementia - Diet; Exe rcise and Socialization Handout ORDERS [facility]psychology [facility] [id number] MOCA [id number] Documentation of current medicatio ns ORDERS C Reactive Protein (CRP) Qn ORDERS CBC with Diff/Platelet 02/26 ORDERS Folate (Folic Acid) Serum 09/03/13 ORDERS TSH ORDERS AD-Detect Amyloid Beta 42/40 ORDERS Ammonia ORDERS AD-Detect Amyloid Beta 42/40 ORDERS Ammonia ORDERS C Reactive Protein (CRP) Qn ORDERS CBC with Diff/Platelet 02/26 ORDERS Folate (Folic Acid) Serum 09/03/13 ORDERS TSH ORDERS AD-Detect Amyloid Beta 42/40 ORDERS Ammonia ORDERS C Reactive Protein (CRP) Qn ORDERS CBC with Diff/Platelet 02/26 ORDERS Folate (Folic Acid) Serum 09/03/13 ORDERS TSH CPT-03305 Nerve Conduction 5-6 studies CPT-94036 Nerve Conduction 5-6 studies CPT-20674 Nerve Conduction 5-6 studies CPT-86632 EMG with NCS (5+ muscles) - 1 limb 04/23 CPT-33162 Motor NCS x 2 CPT-22505 Sensory NCS x 2 CPT-72666 Motor NCS x 2 CPT-50970 Sensory NCS x 3 CPT-94601 Motor NCS and Fwave x 2 2010 CPT-95674 Sensory NCS x 3 CPT-83079 EMG 1 limb Vital Signs Date Name Value Unit Description Heart Rate 66 /min pulse rate Immunizations No information available. Advance Directives No information available.
--- OUTSIDE RECORDS SUMMARY | 2024-09-06 16:11 | XMS_ITS | Encounter Summary ---
Author Organization [facility] Address [address] [place] [address] Care Team Providers Care Artillery Maintenance Supervisor Name Role Phone Frw, None Primary Care Provider Unavailabl e Tara Montilla MD Unavailable [phone] Audra Zepeda Primary Care Provider [phone] Philipp Morejon PA-C Unavailable [phone] Philipp Morejon PA-C Unavailable [phone] Encounter Details Date Type Department Care Team (Late st Contact Info) Description 09/27/2010 MyC Medical Advice [facility] in [place] Inpatient Dept [address] [place] [address] Tara Montilla MD [address] [place] [address] Social History Tobacco Use Types Packs/Day Years Used Date Smoking Tobacco: Former Comments:smoked for 3 yrs in college Alcohol Use Standard Drinks/Week Comments No 0 (1 standard drink = 0.6 oz pur e alcohol) Comments No Sex and Gender Information Value Date Recorded Sex Assigned at Not on file 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 Sex 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 Gender Identity Not on file Sexual Orientation Not on file documented as of this encounter Plan of Treatment Not on file documented as of this encounter Visit Diagnoses Not on filedocumented in this encounter Care Teams Artillery Maintenance Supervisor Relationship Specialty Start Date End Date Frw, None PCP - General 01/16/07 12/14/16 Tara Montilla MD PCP - Obstetrics/Gynecology chemical tank worker 09/26/10 Audra Zepeda PCP - General Family Practice 02/13/19 Philipp Morejon PA-C [address] [id number] Assigned Surgical Provider 06/30/20 Philipp Morejon PA-C [address] [address] Assigned Musculoskeletal Provider 10/03/20 05/07/21 documented as of this encounter
--- OUTSIDE RECORDS SUMMARY | 2024-09-06 16:11 | XMS_ITS | Encounter Summary ---
Author Organization [facility] Address [address] [place] [address] Care Team Providers Care Weigh Box Tender Name Role Phone Frw, None Primary Care Provider Unavailabl e Tara Montilla MD Unavailable [phone] Audra Zepeda Primary Care Provider [phone] Philipp Morejon PA-C Unavailable [phone] Philipp Morejon PA-C Unavailable [phone] Encounter Details Date Type Department Care Team (Late st Contact Info) Description 05/01/2007 MyC Medical Advice [facility] in [place] ORTHOPEDIC CAST SPECIALIST [address] [place] [phone] Danisha Palafox MD [facility] [address] [place] [address] Endometrial hyperplasia (Primary Dx) Social History Tobacco Use Types Packs/Day Years Used Date Smoking Tobacco: Former Comments:smoked for 3 yrs in college Alcohol Use Standard Drinks/Week Comments No 0 (1 standard drink = 0.6 oz pur e alcohol) Comments No Sex and Gender Information Value Date Recorded Sex Assigned at Not on file 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 documented in this encounter Plan of Treatment Not on file documented as of this encounter Visit Diagnoses Diagnosis Endometrial hyperplasia- Primary Endometrial hyperplasia, unspecified documented in this encounter Care Teams Weigh Box Tender Relationship Specialty Start Date End Date Frw, None PCP - General 01/16/07 12/14/16 Tara Montilla MD PCP - Obstetrics/Gynecology [place] 09/26/10 Audra Zepeda PCP - General Family Practice 02/13/19 Philipp Morejon PA-C [address] [address] Assigned Surgical Provider 06/30/20 Philipp Morejon PA-C [address] [place] [address] Assigned Musculoskeletal Provider 10/03/20 05/07/21 documented as of this encounter
--- OUTSIDE RECORDS SUMMARY | 2024-09-06 16:11 | XMS_ITS | Encounter Summary ---
Author Organization [facility] Address [address] [place] [address] Care Team Providers Care Network Control Operators Supervisor Name Role Phone Frw, None Primary Care Provider Unavailabl e Tara Montilla MD Unavailable [phone] Audra Zepeda Primary Care Provider Philipp Morejon PA-C Unavailable [phone] Philipp Morejon PA-C Unavailable [phone] Encounter Details Date Type Department Care Team (Late st Contact Info) Description 04/17/2008 MyC Medical Advice [facility] in [place] CURRICULUM COUNSELOR [address] [place] [phone] Danisha Palafox MD [facility] [address] [place] [address] Gisel-Menopause (Primary Dx) Social History Tobacco Use Types Packs/Day Years Used Date Smoking Tobacco: Former Comments:smoked for 3 yrs in college Alcohol Use Standard Drinks/Week Comments No 0 (1 standard drink = 0.6 oz pur e alcohol) Comments No Sex and Gender Information Value Date Recorded Sex Assigned at Not on file Legal Sex Female 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 Let me know, thanks. GER LOGISTIC documented in this encounter Plan of Treatment Not on file documented as of this encounter Visit Diagnoses Diagnosis Gisel-menopause- Primary Symptomatic menopausal or female climacteric states documented in this encounter Care Teams Network Control Operators Supervisor Relationship Specialty Start Date End Date Frw, None PCP - General 01/16/07 12/14/16 Tara Montilla MD PCP - Obstetrics/Gynecology plate mill mill hand 09/26/10 Audra Zepeda PCP - General Family Practice 02/13/19 Philipp Morejon PA-C [address] [place], [place] [address] Assigned Surgical Provider 06/30/20 Philipp Morejon PA-C [address] [place] [address] Assigned Musculoskeletal Provider 10/03/20 05/07/21 documented as of this encounter
--- OUTSIDE RECORDS SUMMARY | 2024-09-06 16:11 | XMS_ITS | Patient Health Record ---
Author Organization [facility] Address [address] [place] [id number] Care Team Providers Care Community Health Nursing Director Name Role Phone MAE GARZA Unavailable [phone] Allergies Allergen (clinical drug ingredient) Drug/Non Drug Allergy documented on EMR Reaction Allergy Type Onset Date Status soy protein (uncoded) hives/GI upset Allergy Active acetaminophen / hydrocodone Hydrocodone-Acetam inophen unable to speak/severe pain Drug Allergy Active Reason For Referral No Information Medications Medication SIG (Take, Route, Frequency, Duration) Notes Start Date End Date Status Fiber - 1 capsule Orally daily for 90 days Active Probiotic - 4 capules Orally daily for 90 days Active Multi Complete - Orally Not -Taking Probiotic - Orally Active Vitamin K 100 MCG 1 tablet Orally Once a day Active Quercetin 50 MG 1 tablet Orally Once a day Active Diclofenac 35 MG 1 capsule with food or milk as needed Orally Three times a day Not-Taking L-Glutamine 500 MG Taper down to 2 capsules for 2 weeks then D/C Orally daily Active Estradiol 0.5 MG 1 tablet Orally Not-Taking Selenium 100 MCG 1 tablet Orally Once a day Active busPIRone HCl 30 MG 1 tablet Orally Twice a day Active Claritin 10 MG 1 tablet Orally Once a day Active Acetaminophen 500 MG 2 at night and 1 during the day Orally daily Active ARIPiprazole 5 mg 1/2 tablet Orally Once a day Not-Taking Vitamin B Complex - Orally Not-Taking CBD Oil 1-2ml oral daily for 30 days 09/04/2018 Active Chromium 100 MCG Orally Act gary Progesterone 300mg 1 capsule by mouth Once a day Active Testosterone Propionate 2 % Transdermal Active Borage Oil 500 MG Orally Ac tive Rhodiola 300 MG Orally planning to ween off Active Mirtazapine 45 MG 1 tablet at bedtime Orally Once a day Active Olopatadine HCl 0.1 % 1 drop into affected eye Ophthalmic Twice a day Not-Taking Estring 2 MG Vaginal Active DHA Cayuta 3 100 MG Orally A ctive Vitamin C 1000 MG 1 tablet Orally Once a day Active Estradiol Acetate 0.375 patch Ac tive Vitamin D3 - 10 drops daily Ac tive Adapt- All 1 1 cap Orally in the morning 08/21/2018 Active Bio-Iron 1 daily by mouth daily 05/08/2018 Active Social History Tobacco Use: Social History Observation Description Date Details (start date - stop date) Never Smoker NA - NA Tobacco Use/Smoking Question Answer Notes Are you a nonsmoker Alcohol Screen (Audit-C) Question Answer Notes Did you have a drink contain ing alcohol in the past year? Yes How often did you have a dri nk containing alcohol in the past year? Monthly or less (1 point) How many drinks did you have on a typical day when you were drinking in the past year? 1 or 2 drinks (0 point) Points 1 Interpretation Negative Problems Problem Type SNOMED Code ICD Code Onset Dates Problem Status W/U Status Risk Notes Problem Adrenal abnormality (E27.9) Active confirmed Problem 21738588 Vitamin D deficiency (E55.9) Active confirmed Problem 075262851 Encounter for vitamin deficiency screening (Z13.21) Active confirmed Problem 03398791 Anxiety (F41.9) Active confirmed Problem 69699611 Menopausal symptoms (N95.1) Active confirmed Problem 88946498 Other chronic pain (G89.29) Active confirmed Problem 25412322 Stress (F43.9) Active confirmed Problem 51935478 Chronic fatigue (R53.82) Active confirmed Problem [id number] History of IBS (Z87.19) Active confirmed Problem 23978673 Depression, unspecified depression type (F32.9) Active confirmed Plan Of Treatment Pending Test Test Name Order Date COMPREHENSIVE METABOLIC PANEL 08/09/2018 CBC (INCLUDES DIFF/PLT) WITH SMEAR REVIE W 08/09/2018 ESTRADIOL 08/09/2018 PROGESTERONE 08/09/2018 DHEA SULFATE 08/09/2018 VITAMIN B12 08/09/2018 FERRITIN 08/09/2018 CORTISOL, AM 08/09/2018 VITAMIN D 08/01/2018 VITAMIN D 08/09/2018 SEX HORMONE BINDING GLOBULIN 08/09/2018 TESTOSTERONE,FR(DIALYSIS) AND TOTAL(LC/M S/MS) 08/09/2018 VITAMIN D 03/11/2018 COMPREHENSIVE METABOLIC PANEL 03/11/2018 CBC (H/H, RBC, INDICES, WBC, PLT) 2017 GLIADIN (DEAMIDATED) AB (IGG, IGA) 03/11 THYROGLOBULIN PANEL 03/11/2018 THYROID PEROXIDASE ANTIBODIES 03/11/2018 ESTRADIOL 03/11/2018 PROGESTERONE 03/11/2018 DHEA SULFATE 03/11/2018 VITAMIN B12 03/11/2018 FERRITIN 03/11/2018 T4, FREE 03/11/2018 CORTISOL, AM 03/11/2018 TSH 03/11/2018 T3, FREE 03/11/2018 SEX HORMONE BINDING GLOBULIN 03/11/2018 TESTOSTERONE,FR(DIALYSIS) AND TOTAL(LC/M S/MS) 03/11/2018 CBC (INCLUDES DIFF/PLT) WITH SMEAR REVIE W 04/26/2018 FOLATE, SERUM 04/26/2018 COMPREHENSIVE METABOLIC PANEL 08/01/2018 CBC (INCLUDES DIFF/PLT) WITH SMEAR REVIE W 08/01/2018 ESTRADIOL 08/01/2018 PROGESTERONE 08/01/2018 DHEA SULFATE 08/01/2018 VITAMIN B12 08/01/2018 FERRITIN 08/01/2018 CORTISOL, AM 08/01/2018 SEX HORMONE BINDING GLOBULIN 08/01/2018 TESTOSTERONE,FR(DIALYSIS) AND TOTAL(LC/M S/MS) 08/01/2018 Future Test Test Name Order Date COMPREHENSIVE METABOLIC PANEL 02/21/2019 CBC (H/H, RBC, INDICES, WBC, PLT) 2018 DHEA SULFATE 02/21/2019 CORTISOL, AM 02/21/2019 VITAMIN D 02/21/2019 Insurance Providers Payer Name Payer Address Payer Phone Subscriber Number Group Number Insured Name Patient Relationship to Insured Coverage Start Date Coverage End Date BCBS Medicare Replacemen t [address] [address] [place], [place] [id number] Bessy Morley Self - patient is the insured MEDICARE PART B [address] [place], [place] [id number] Bessy oMrley Self - patient is the insured Medical (General) History Surgical History Surgery Date(Month/Year) tonsillectomy 1974 1986 right wrist carpal tunnel 2011 right shoulder arthroscopic rotator cuff repair, AC joint resectin, bicep transplantation 2016 Hospitalization History Reason Date(Month/Year) shoulder repair 2015 1985 tonsillectomy 1974
--- OUTSIDE RECORDS SUMMARY | 2024-09-06 16:11 | XMS_ITS | Encounter Summary ---
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 [address] [place] [address] Social History Tobacco Use Types Packs/Day Years Used Date Smoking Tobacco: Former Comments:smoked for 3 yrs in college Alcohol Use Standard Drinks/Week Comments No 0 (1 standard drink = 0.6 oz pur e alcohol) Comments No Sex and Gender Information Value Date Recorded Sex Assigned at Not on file Legal Sex Female 3:06 AM NEWSPERSON Gender Identity Not on file Sexual Orientation Not on file documented as of this encounter Plan of Treatment Not on file documented as of this encounter Visit Diagnoses Not on filedocumented in this encounter Care Teams Rug Hooker Relationship Specialty Start Date End Date Frw, None PCP - General 01/16/07 12/14/16 Tara Montilla MD PCP - Obstetrics/Gynecology stereo equipment installer 09/26/10 Audra Zepeda PCP - General Family Practice 02/13/19 Philipp Morejon PA-C [address] [place] [id number] Assigned Surgical Provider 06/30/20 Philipp Morejon PA-C [address] [place] [address] Assigned Musculoskeletal Provider 10/03/20 05/07/21 documented as of this encounter
--- OUTSIDE RECORDS SUMMARY | 2024-09-06 16:11 | XMS_ITS | Clinical Summary ---
Author Organization [facility] Address [address] [place] [address] Care Team Providers Care Bulb Planter Name Role Phone Audra Zepeda Primary Care Provider [phone] Allergies Active Allergy Reactions Criticality Noted Date Comments Hydrocodone Nausea and Vomiting,Other (See Comments) Medium 09/12/2006 Unable to speak Pt states she felt like she was dying and she was unable to articulate to her how she felt Mold 01/18/2006 No Clinical Screening - See Comments Swelling 05/09/2019 Kanka ointment. Soy Hives 01/18/2006 Hydrocodone-Acetaminop hen 04/26/2007 Medications multivitamin w/minerals (THERA-VIT-M) tablet Take 1 tablet by mouth daily Active estradiol (ESTRING) [address] vaginally every 3 months Active venlafaxine (EFFEXOR-XR) 150 MG 24 hr capsule Take 150 mg by mouth daily Active mirtazapine (REMERON) 45 MG tablet Take 45 mg by mouth At Bedtime Active busPIRone HCl (BUSPAR) 30 MG tablet Take 30 mg by mouth 2 times daily Active estradiol (CLIMARA) 0.0375 MG/24HR weekly patch Place 1 patch onto the skin once a week On Tuesdays Active Calcium-Magnesiu m (RIKY-MAG PO) Take 3 capsules by mouth daily 450 mg riky/150 mg Mg per 2 capsules per pt Active progesterone (PROMETRIUM) 100 MG capsule Take 300 mg by mouth At Bedtime Active fish oil-omega-3 fatty acids 1000 MG capsule Take 3 g by mouth 2 times daily Breakfast and lunch Active EC-RX TESTOSTERONE 0.4 % CREA Place 1 Application onto the skin daily Pt thinks it is 4% cream. But unsure. Will have family bring from home if she wants to use it here. Active amLODIPine (NORVASC) 5 MG tabletIndication s:Benign essential hypertension Take 1 tablet (5 mg) by mouth daily 30 tablet 9 Active acetaminophen (TYLENOL) 325 MG tabletIndication s:Subdural hemorrhage (H) Take 2 tablets (650 mg) by mouth every 4 hours as needed for other (multimodal surgical pain management along with NSAIDS and opioid medication as indicated based on pain control and physical function.) 9 Active sennosides (SENOKOT) 8.6 MG tabletIndication s:Prophylactic measure Take 1-2 tablets by mouth 2 times daily as needed for constipation 30 tablet 9 Active Additional Information Patient not taking.Reported on 03/07/2019 levETIRAcetam (KEPPRA) 500 MG tabletIndication s:Subdural hemorrhage (H),Prophylactic measure Take 1 tablet (500 mg) by mouth 2 times daily for 7 days 14 tablet 9 Active oxyCODONE (ROXICODONE) 5 MG tabletIndication s:Subdural hemorrhage (H) Take 1-2 tablets (5-10 mg) by mouth every 4 hours as needed 20 tablet 9 Active Additional Information Patient not taking.Reported on 03/03/2019 celecoxib (CELEBREX) 200 MG capsule Take 200 mg by mouth 2 times daily Active gabapentin (NEURONTIN) 300 MG capsule Take 300 mg by mouth 3 times daily Active Active Problems Problem Noted Date Diagnosed Date S/P craniotomy 03/03/2019 Subdural hematoma 02/14/2019 Subdural hemorrhage 02/13/2019 Overview (02/13/2019): Added automatically from request for surgery [id number] Subdural bleeding 02/13/2019 Endometrial hyperplasia 12/24/2007 Immunizations Immunization Administration Dates Next Due TD,PF 7+ (Tenivac) 10/15/1996 TDAP Vaccine (Adacel) 05/29/2008 Family History Medical History Relation Comments Depression Brother Manic depression Heart Disease Father CFH Cancer - colorectal Maternal Grandmother Cerebrovascular Disease Mother TIA's Gastrointestinal Disease Mother IBS Heart Disease Mother Hypertension Mother Depression Sister recovering addic t narcotics Relation Status Comments Brother Father Maternal Grandmother Mother Alive Sister Social History Tobacco Use Types Packs/Day Years Used Date Smoking Tobacco: Former Smokeless Tobacco: Never Comments:smoked for 3 yrs in college Alcohol Use Standard Drinks/Week Comments No 0 (1 standard drink = 0.6 oz pur e alcohol) Adolescent Education Answer Date Record ed Getting School Help Needed Not on file 01/20 Comments No Sex and Gender Information Value Date Recorded Sex Assigned at Not on file Legal Sex Female 3:06 AM DOCUMENTATION LEAD Gender Identity Not on file Sexual Orientation Not on file Last Filed Vital Signs Vital Sign Reading Time Taken Comments Blood Pressure 151/88 11/03/2019 3:13 PM CDT Pulse 93 11/03/2019 3:13 PM CDT Temperature 36.8 C (98.3 F) 05/09/2019 1:46 PM DOCUMENTATION LEAD Respiratory Rate 16 11/03/2019 3:13 PM CDT Oxygen Saturation 93% 11/03/2019 3:13 PM CDT Inhaled Oxygen Concentration - - Weight 66.7 kg (147 lb) 11/03/2019 3:13 PM CDT Height 154.9 cm (5' 1) 11/03/2019 3:13 PM CDT Body Mass Index 27.78 11/03/2019 3:13 PM CDT Plan of Treatment Not on file Medical Devices Implanted Type Area Addictions Therapist Device Identifier Shelf Expiration Date Model / Serial / Lot Graft Duragen 3x3 [id number] Implanted:Qty: 1 on 02/14/2019 by Rogers Cornell MD at [facility] Bone/Tissue/ Biologic Right: Brain [employer] 07/14/2021 [id number] / / [id number] Imp Scr Syn Matrix Low Pro 1.5x04mm Self Drill [id number] Implanted:Qty: 8 on 02/14/2019 by Rogers Cornell MD at [facility] Metallic Hardware/Anc hor Right: Brain S[employer] Systems-[employer]AT[employer] [id number] 4.01 / / LOAD 42 08 02/03/19 Imp Plate Syn Debi Hole Cover 17mm .023 Implanted:Qty: 1 on 02/14/2019 by Rogers Cornell MD at [facility] Metallic Hardware/Anc hor Right: Brain SYNTHES-STRATEC . 3 / / LOAD 42 08 02/03/19 Imp Plate Syn Matrixneuro Str 2 Hole 12mm .062 Implanted:Qty: 2 on 02/14/2019 by Rogers Cornell MD at [facility] Metallic Hardware/Anc hor Right: Brain SYNTHES-STRATEC . 2 / / LOAD 42 08 02/03/19 Insurance [facility] [place] MEDIC[facility] Advance Directives For more information, please contact: [phone] * Full Code (Latest Code Status on File) Date Activated Date Inactivated Comments 02/13/2019 9:42 PM 02/19/2019 8:46 PM Question Answer Comments Code status determined by: Other (please documen t) Care Teams Bulb Planter Relationship Specialty Start Date End Date Katelyn Audra PCP - General Family Practice 02/13/19
--- OUTSIDE RECORDS SUMMARY | 2024-09-06 16:12 | XMS_ITS | Encounter Summary ---
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 [address] [place] [phone] Danisha Palafox MD [facility] [address] [place] [address] Social History Tobacco Use Types Packs/Day Years Used Date Smoking Tobacco: Former Comments:smoked for 3 yrs in college Alcohol Use Standard Drinks/Week Comments No 0 (1 standard drink = 0.6 oz pur e alcohol) Comments No Sex and Gender Information Value Date Recorded Sex Assigned at Not on file Legal Sex Female 3:06 AM RELAY OPERATOR Gender Identity Not on file Sexual Orientation Not on file documented as of this encounter Plan of Treatment Not on file documented as of this encounter Visit Diagnoses Not on filedocumented in this encounter Care Teams Hand Screen Printer Relationship Specialty Start Date End Date Frw, None PCP - General 01/16/07 12/14/16 Tara Montilla MD PCP - Obstetrics/Gynecology internet application developer 09/26/10 Audra Zepeda PCP - General Family Practice 02/13/19 Philipp Morejon PA-C [address] [id number] Assigned Surgical Provider 06/30/20 Philipp Morejon PA-C [address] [place] [address] Assigned Musculoskeletal Provider 10/03/20 05/07/21 documented as of this encounter
--- OUTSIDE RECORDS SUMMARY | 2024-09-06 16:12 | XMS_ITS | Encounter Summary ---
Author Organization [facility] Address [address] [place] [address] Care Team Providers Care Real Estate Accountant Name Role Phone Frw, None Primary Care Provider Unavailbailey e Tara Montilla MD Unavailable [phone] Audra Zepeda Primary Care Provider Philipp Moerjon PA-C Unavailable [phone] Philipp Morejon PA-C Unavailable [phone] Reason for Visit * Reason Onset Date Comments MyChart Communication 09/07/2009 Encounter Details Date Type Department Care Team (Late st Contact Info) Description 09/07/2009 MyC Medical Advice [facility] in [place] 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 [address] [place] [phone] Danisha Palafox MD [facility] [address] [place] [address] MyChart Communication Social History Tobacco Use Types Packs/Day Years Used Date Smoking Tobacco: Former Comments:smoked for 3 yrs in college Alcohol Use Standard Drinks/Week Comments No 0 (1 standard drink = 0.6 oz pur e alcohol) Comments No Sex and Gender Information Value Date Recorded Sex Assigned at Not on file Legal Sex Female 3:06 AM MEDICAL NUMERICAL CONTROL OPERATOR Gender Identity Not on file Sexual Orientation Not on file documented as of this encounter Plan of Treatment Not on file documented as of this encounter Visit Diagnoses Diagnosis Gisel-menopause- Primary Symptomatic menopausal or female climacteric states documented in this encounter Care Teams Real Estate Accountant Relationship Specialty Start Date End Date Frw, None PCP - General 01/16/07 12/14/16 Tara Montilla MD PCP - Obstetrics/Gynecology electrical sign servicer 09/26/10 Audra Zepeda PCP - General Family Practice 02/13/19 Philipp Morejon PA-C [address] [place] [address] Assigned Surgical Provider 06/30/20 Philipp Morejon PA-C [address] [place] [address] Assigned Musculoskeletal Provider 10/03/20 05/07/21 documented as of this encounter
--- NOTE | 2024-09-06 16:19 | ED_ITS ---
HPI - General Adult General Chief complaint: Chest Pain Stated complaint: Chest pains Time Seen by Provider: 09/06/24 16:10 History of Present Illness HPI narrative: r sided cp since 9 am off and on, ems checked pt out at home and drove pt here. was seen at [facility] for L sided CP. denies other symptoms. 74-year-old woman presenting to the emergency department with concern of chest pain. Called to check in with triage line and directed to call 911 to present directly to the emergency department. Called in with some chest discomfort now in the right upper chest that started yesterday night. Can not affect the discomfort in any way. She says it is mild. No preceding cough or cold symptoms. Seen 4 days ago in area emergency department with extensive evaluation for left upper chest pain which did include CT of the chest looking for pulmonary embolus which was negative. Otherwise unremarkable except for mild elevation in troponin which looks to be in an indeterminate range. mentions that she has developed a wheeze sometimes now. Forced exhalation is able to demonstrated. Otherwise not short of breath. Denies symptoms of indigestion as she is eating a granola bar in the room Started Namenda last week. Related Data Home Medications ?Medication ?Instructions ?Recorded ?Confirmed gabapentin 300 mg capsule mg PO BID 02/19/23 02/19/23 mirtazapine 15 mg tablet 15 mg PO QPM 02/19/23 progesterone micronized 100 mg mg PO 02/19/23 02/19/23 capsule hydrochlorothiazide 12.5 mg tablet 12.5 mg PO DAILY 09/06/24 lisinopril 20 mg tablet 20 mg PO DAILY 09/06/24 0508/08 melatonin 09/06/24 memantine 10 mg tablet PO 09/06/24 potassium chloride 10 mEq 10 meq PO DAILY 09/06/24 tablet,extended release(part/cryst) Allergies Allergy/AdvReac Type Severity Reaction Status Date / Time hydrocodone Allergy Verified 02/19/23 14:40 soy Allergy Verified 02/19/23 14:40 lorazepam (From Ativan) AdvReac Mild feeling Verified 02/19/23 14:40 weird Review of Systems Status of ROS: Reports: 6 or more systems reviewed and unremarkable except as noted in History and below [facility] Medical History TBI (traumatic brain injury) ?S06.9XAA - Unspecified intracranial injury with loss of consciousness status unknown, initial encounter (ICD-10) Anxiety and depression ?F41.9 - Anxiety disorder, unspecified (ICD-10) ?F32.A - Depression, unspecified (ICD-10) Surgical History Hx of tonsillectomy ?Z90.89 - Acquired absence of other organs (ICD-10) History of hysteroscopy ?Z98.890 - Other specified postprocedural states (ICD-10) H/O section ?Z98.891 - History of uterine scar from previous surgery (ICD-10) Social History Smoking Status: Former smoker Do you use any of these nicotine containing products: None Second hand tobacco smoke exposure: No How often do you have a drink containing alcohol: never How often do you have six or more drinks on one occasion: Never AUDIT-C Alcohol total score: 0 Non-prescribed substance use: denies use service: No Exam Narrative: Exam Narrative: Pleasant. NAD. Heart in mildly elevated rate though does go tachycardic at times. Regular rhythm. No murmur rub or gallop. Skin is warm dry. Lower extremities are without edema. No pain to palpation. Lungs are clear. She does demonstrate this wheeze with forced exhalation but otherwise not audible. Abdomen is soft and nontender. On upon palpation of the chest wall I appear to be able to reproduce pain in the right upper chest but also somewhat in the left. No rashes noted. Further observation of occasional asymptomatic PVC. Const: Vital Signs, click to edit/add: Vital Signs - 24 hr 09/06/24 16:19 09/06/24 16:25 09/06/24 16:30 Temperature 98.5 F Pulse Rate 96 107 H Pulse Rate [Pulse Oximeter] 92 Respiratory Rate 18 Blood Pressure Blood Pressure [Ri ght Upper Arm] 169/85 H Pulse Oximetry 95 95 94 Oxygen Delivery Me thod Room Air 09/06/24 16:39 09/06/24 16:45 09/06/24 17:00 Temperature Pulse Rate 97 91 Pulse Rate [Pulse Oximeter] Respiratory Rate 17 Blood Pressure Blood Pressure [Ri ght Upper Arm] Pulse Oximetry 97 95 96 Oxygen Delivery Me thod 09/06/24 17:11 09/06/24 17:12 09/06/24 17:15 Temperature Pulse Rate 97 98 97 Pulse Rate [Pulse Oximeter] Respiratory Rate 16 21 15 Blood Pressure 130/70 Blood Pressure [Ri ght Upper Arm] Pulse Oximetry 96 95 95 Oxygen Delivery Me thod 09/06/24 17:30 09/06/24 17:31 09/06/24 17:45 Temperature Pulse Rate 95 93 Pulse Rate [Pulse Oximeter] Respiratory Rate 22 22 16 Blood Pressure 144/76 H Blood Pressure [Ri ght Upper Arm] Pulse Oximetry 96 97 Oxygen Delivery Me thod 09/06/24 18:00 Temperature Pulse Rate 99 Pulse Rate [Pulse Oximeter] Respiratory Rate 20 Blood Pressure Blood Pressure [Ri ght Upper Arm] Pulse Oximetry 94 Oxygen Delivery Me thod Documenting provider has reviewed patient's vital signs: yes Course Vital Signs Vital signs: Initial Vital Signs Temperature 98.5 F 09/06/24 16:19 Temperature Source Temporal Artery Scan 09/06/24 16:19 Pulse Rate 92 09/06/24 16:19 Respiratory Rate 18 09/06/24 16:19 Blood Pressure 169/85 H 09/06/24 16:19 Blood Pressure Mean 113 H 09/06/24 16:19 Blood Pressure Position Supine 09/06/24 16:19 Pulse Oximetry 95 09/06/24 16:19 Oxygen Delivery Method Room Air 09/06/24 16:19 Vital Signs Temperature 98.5 F 09/06/24 16:19 Pulse Rate 92 09/06/24 16:19 Respiratory Rate 18 09/06/24 16:19 Blood Pressure 169/85 H 09/06/24 16:19 Pulse Oximetry 95 09/06/24 16:19 Oxygen Delivery Method Room Air 09/06/24 16:19 Temperature 98.5 F 09/06/24 16:19 Pulse Rate 99 09/06/24 18:00 Respiratory Rate 20 09/06/24 18:00 Blood Pressure 144/76 H 09/06/24 17:31 Pulse Oximetry 94 09/06/24 18:00 Oxygen Delivery Method Room Air 09/06/24 16:19 Medical Decision Making MDM Narrative Medical decision making narrative: I do review information from prior ER visit. Chest discomfort is quite mild. I think would run some labs looking for potential elevation in this troponin again or inflammatory marker that might suggest need for further evaluation. Does not appear to have respiratory symptoms to be consistent with pneumonia. Furthermore chest was just scanned; doubtful PE. This does not appear to be clearly pleuritic either. It is possibly reproducible to suggest chest wall origin. Does not appear to be heartburn or similar. Initial EKG reviewed by me does show sinus tachycardia without ischemic changes appreciated. Rate of 104. Labs are unremarkable. No further event during time in the emergency department. Upon review has very little discomfort as prior. Medical Records Medical records reviewed: Yes I reviewed the patient's medical records Lab Data Lab results reviewed: Yes I reviewed the patient's lab results Labs: Lab Results 09/06/24 Range/Units 16:57 WBC 7.60 (4.50-11.00) K/uL RBC 3.46 L (4.00-5.20) m/uL Hgb 11.0 L (12.0-16.0) gm/dL Hct 33.7 (33.0-51.0) % MCV 97 (80-100) fL MCH 32 (26-34) pg MCHC 33 (32-36) gm/dL RDW Coeff of [place] 13.6 (11.5-15.5) % Plt Count 350 (140-440) K/uL Neut % (Auto) 65.2 (42.0-72.0) % Lymph % (Auto) 20.0 (20-44) % [place] % (Auto) 9.7 (0.0-11.0) % Eos % (Auto) 3.6 (0.0-7.0) % Baso % (Auto) 0.4 (0.0-3.0) % Neut # (Auto) 4.96 (1.7-7.0) K/uL Lymph # (Auto) 1.52 (0.90-2.90) K/uL [place] # (Auto) 0.70 (0.00-0.90) K/UL Eos # (Auto) 0.27 (0.00-0.50) K/uL Baso # (Auto) 0.03 (0.00-0.30) K/uL Abs Immat Gran (auto) 0.08 (0.00-0.30) K/uL Imm/Tot Granulo (auto) 1.1 % Sodium 140 (135-149) mmol/L Potassium 4.7 (3.6-5.1) mmol/L Chloride 105 (96-114) mmol/L Carbon Dioxide 28 (20-32) mmol/L Anion Gap 7 (7-15) mEq/L BUN 25 (7-30) mg/dL Creatinine 0.8 (0.5-1.5) mg/dL Estimated Creat Clear 36.53 Estimated GFR 78 ml/min Glucose 106 (60-115) mg/dL Calcium 9.2 (8.4-10.6) mg/dL Troponin I < 0.01 (0.01-0.04) ng/mL C-Reactive Protein < 0.5 L (0.5-1.0) mg/dL NT-Pro-B Natriuret Pep 155 (See Note) pg/mL Discharge Plan Discharge Clinical Impression: Atypical chest pain Patient Disposition: Home w/ Parent or Adult Condition: Stable Additional Instructions: I think I would discuss findings from your [facility] visit with your primary care provider to explore further workup as necessary. Return/be seen for increasing and persistent chest pain particularly accompanied by nausea or shortness of breath lightheadedness. Consider taking 400 mg of ibuprofen 3 times daily with a little food over the next 4 days. Prescriptions: No Action mirtazapine 15 mg tablet 15 mg PO QPM progesterone micronized 100 mg capsule PO gabapentin 300 mg capsule PO BID lisinopril 20 mg tablet 20 mg PO DAILY potassium chloride 10 mEq tablet,ER particles/crystals 10 meq PO DAILY hydrochlorothiazide 12.5 mg tablet 12.5 mg PO DAILY melatonin memantine 10 mg tablet PO Follow Up/Referrals: Audra Zepeda MD [Primary Care Provider, Family Practice] Stand Alone Forms: [employer] Info Instructions
--- OUTSIDE RECORDS SUMMARY | 2024-09-06 16:55 | XMS_ITS | Clinical Summary ---
Author Organization [facility] Address [address] , [address] [place] [address] Phone Care Team Providers Care Corrections Cadet Name Role Phone Mariam Becerra Unavailable Unavailable Conditions or Problems Problem Name Problem Code Onset Date Status Entry Date Provider Comment Standard Description Annotate Psychomotor deficit 797706067 (SNOMED CT) 04/28 Active 04/28 Jason Bunn MD Finding of general physiological development Personal history of traumatic brain injury 204284741 (SNOMED CT) 04/28 Active 04/28 Jason Bunn MD History of head injury Cognitive changes 547691785 (SNOMED CT) 04/28 Active 04/28 Jason Bunn MD Impaired cognition NUMBNESS/TING LING 782.0 (ICD-9-CM) 10/19 Resolved 10/19 Jason Bunn MD Disturbance of skin sensation HAND PAIN 54442845 (SNOMED CT) 10/19 Resolved 10/19 Jason Bunn MD Hand pain CARPAL TUNNEL SYNDROME 11476820 (SNOMED CT) 10/19 Active 10/19 Jc Carcamo MD Carpal tunnel syndrome HAND PAIN 84206024 (SNOMED CT) 10/19 Removed 10/19 Jc Carcamo MD Hand pain NUMBNESS/TING LING 782.0 (ICD-9-CM) 10/19 Removed 10/19 Jc Carcamo MD Disturbance of skin sensation Medications Medication Instructions Start Date Stop Date Generic Name NDC Provider HYDROCODONE-ACETAMIN OPHEN 5-300 MG TABS NOT SURE 08/27 hydrocodone-aceta minophen 07371216391 Nilsa Cordoba PA-C IPRATROPIUM BROMIDE 0.03 % SOLN Inhale 2 spray into both nostrils three times a day 01/06 ipratropium bromide 38404839259 Nilsa Cordoba PA-C Yqbxb-2-ENH-EPA-Fish Oil 1,000 mg (120 mg-180 mg) cap Take 1 capsule by mouth once a day 05/09 120 mg-180 mg Nilsa Cordoba PA-C HYDROCHLOROTHIAZIDE 12.5 MG TABS hydrochlorothiaz i de 57654881711 Nilsa Cordoba PA-C LISINOPRIL 20 MG TABS lisinopril 90691819824 Nilsa Cordoba DEREK-C EQ ACETAMINOPHEN 500 MG TABS acetaminophen 69271065955 Nilsa Cordoba DEREK-C DONEPEZIL HCL 5 MG TABS 1 tablet by mouth once a day 04/28 donepezil 62437439220 Nilsa Cordoba PA-C MEMANTINE HCL 10 MG TABS week 1: take 1/2 tab nightly. week 2: take 1/2 tab twice a day. week 3: take 1/2 tab every morning and 1 tab nightly. week 4 onward: take 1 tab twice a day 08/27 memantine 29038456190 Nilsa Cordoba DEREK-C DONEPEZIL HCL 5 MG TABS 1 tablet by mouth once a day 04/28 donepezil [id number] Jason Bunn MD GABAPENTIN 300 MG CAPS TAKE ONE CAPSULE BY MOUTH EVERY MORNING, TAKE ONE CAPSULE MIDDAY, AND TAKE 2 CAPSULES (600 MG TOTAL) AT BEDTIME 05/03 gabapentin 98001305221 Jason Bunn MD MIRTAZAPINE 15 MG TABS Take 1 tablet by mouth every night 09/04 mirtazapine 10041952364 Jason Bunn MD IPRATROPIUM BROMIDE 0.03 % SOLN Inhale 2 spray into both nostrils three times a day 01/06 ipratropium bromide 79843362531 Jason Bunn MD ESTRADIOL 0.025 MG/24HR PTWK 04/29 estradiol 85645247602 Jason Bunn MD PROGESTERONE 100 MG CAPS Take 3 capsule by mouth every night 05/06 progesterone micronized 69323408490 Jason Bunn MD LORATADINE 10 MG TABS Take 1 tablet by mouth once a day 08/24 loratadine 72423257126 Jason Bunn MD BETAMETHASONE SOD PHOS & ACET 6 (3-3) MG/ML SUSP 9 mg 02/26 betamethasone acet,sod phos 41506792440 Jason Bunn MD BUPROPION HCL ER (SR) 100 MG [id number] Take 1 tablet by mouth every morning 11/03 bupropion hcl 13916635385 Jason Bunn MD ROSUVASTATIN CALCIUM 10 MG TABS Take 1 tablet by mouth every night rosuvastatin 89755504388 Jason Bunn MD Kpapw-5-QZY-EPA-Fish Oil 1,000 mg (120 mg-180 mg) cap Take 1 capsule by mouth once a day 05/09 120 mg-180 mg Jason Bunn MD HYDROCODONE-ACETAMIN OPHEN 5-300 MG TABS NOT SURE 08/27 hydrocodone-aceta minophen 63186030523 Jason Bunn MD MELATONIN 3 MG TABS melatonin 7514008290 6 Jason Bunn MD ROSUVASTATIN CALCIUM 10 MG TABS Take 1 Tablet (10 mg) by mouth at bedtime. 02/26 rosuvastatin 57882080817 QIEUSER QIEUSER PROGESTERONE 100 MG CAPS Take 3 capsules by mouth at bedtime. 05/06 progesterone micronized 70931503901 QIEUSER QIEUSER Qtcbh-5-ZFI-EPA-Fish Oil 1,000 mg (120 mg-180 mg) cap Take 1 Capsule (1,000 mg) by mouth once daily. 05/09 120 mg-180 mg QIEUSER QIEUSER MIRTAZAPINE 15 MG TABS Take 1 Tablet (15 mg) by mouth at bedtime. 09/04 mirtazapine 22978596199 QIEUSER QIEUSER LORATADINE 10 MG TABS Take 1 tablet by mouth once daily. 08/24 loratadine 13605313431 QIEUSER QIEUSER IPRATROPIUM BROMIDE 0.03 % SOLN Inhale 2 Sprays into affected nostril(s) three times daily. [place] dose in each nostril. 01/06 ipratropium bromide 18417936389 QIEUSER QIEUSER GABAPENTIN 300 MG CAPS TAKE ONE CAPSULE BY MOUTH EVERY MORNING, TAKE ONE CAPSULE MIDDAY, AND TAKE 2 CAPSULES (600 MG TOTAL) AT BEDTIME 05/03 gabapentin 47648959436 QIEUSER QIEUSER ESTRADIOL 0.025 MG/24HR PTWK 04/29 estradiol 78062221781 QIEUSER QIEUSER BUPROPION HCL ER (SR) 100 MG [id number] TAKE ONE TABLET BY MOUTH ONCE DAILY IN THE MORNING 11/03 bupropion hcl 39400135046 QIEUSER QIEUSER BETAMETHASONE SOD PHOS & ACET 6 (3-3) MG/ML SUSP 9 mg Intra-Articul ar 02/26 betamethasone acet,sod phos 24084830645 QIEUSER QIEUSER Medications Administered No information available. [...] performed and results reviewed. Total score [MMSE] [id number] Moderate Total sco re [MoCA] MOCA SCORE [...] count, blood NEUTRO COUNT 5502 CELLS/UL 10*3/mm3 2921-3873 N neutrophil count, blood MPV 11.2 fL 7.5-12.5 N Platelet lety n volume [Entitic volume] in Blood by [...] and Socialization Handout ORDERS Neuropsychology Evaluation 2 [facility] [address]-2 MOCA [id number] Documentation of current medicatio ns ORDERS C [...] Folate (Folic Acid) Serum 09/03/13 ORDERS TSH CPT-80943 Nerve Conduction 5-6 studies CPT-46432 Nerve Conduction 5-6 studies CPT-51780 Nerve Conduction 5-6 studies CPT-28282 EMG with NCS (5+ muscles) - 1 limb 04/23 CPT-37480 Motor NCS x 2 CPT-71700 Sensory NCS x 2 CPT-44145 Motor NCS x 2 CPT-96105 Sensory NCS x 3 CPT-03878 Motor NCS and Fwave x 2 2010 CPT-33991 Sensory NCS x 3 CPT-70916 EMG 1 limb Vital Signs Date Name Value Unit Description Heart Rate 66 /min pulse rate Immunizations No information available. Advance Directives No information available.
[2024-09-06 17:03] LABS: Basophils Absolute Auto 0.03 K/uL (0.00-0.30); Basophils Percent Auto 0.4 % (0.0-3.0); Eosinophils Absolute Auto 0.27 K/uL (0.00-0.50); Eosinophils Percent Auto 3.6 % (0.0-7.0); Hematocrit 33.7 % (33.0-51.0); Immature Granulocytes Abs Auto 0.08 K/uL (0.00-0.30); Immature Granulocytes Pct Auto 1.1 %; Lymphocytes Absolute Auto 1.52 K/uL (0.90-2.90); Mean Corpuscular HGB Conc 33 gm/dL (32-36); Mean Corpuscular Hemoglobin 32 pg (26-34); Mean Corpuscular Volume 97 fL (80-100); Monocytes Percent Auto 9.7 % (0.0-11.0); Neutrophils Absolute Auto 4.96 K/uL (1.7-7.0); Neutrophils Percent Auto 65.2 % (42.0-72.0); Platelet Count* 350 K/uL (140-440); RDW Coefficient of Variation % 13.6 % (11.5-15.5); Red Blood Count 3.46 m/uL (4.00-5.20)
[2024-09-06 17:08] LABS: Slide Review Reflex No
[2024-09-06 17:15] LABS: Chloride* 105 mmol/L (96-114); Sodium* 140 mmol/L (135-149)
[2024-09-06 17:16] LABS: Potassium* 4.7 mmol/L (3.6-5.1)
[2024-09-06 17:19] LABS: Anion Gap 7 mEq/L (7-15); Blood Urea Nitrogen* 25 mg/dL (7-30); Calcium* 9.2 mg/dL (8.4-10.6); Carbon Dioxide* 28 mmol/L (20-32); Creatinine* 0.8 mg/dL (0.5-1.5); Est. Creatinine Clearance* 36.53; Estimated Glomerular Filt Rate 78 ml/min; Glucose* 106 mg/dL (60-115)
[2024-09-06 17:40] LABS: C Reactive Protein* < 0.5 mg/dL (0.5-1.0); NT Pro B Type NatriureticPept* 155 pg/mL (See Note); Troponin I* < 0.01 ng/mL (0.01-0.04)
== END 2024-09-06 18:29 | disposition home or self-care (01) ==
PROVIDERS: Emergency Provider Family Medicine; PCP Family Medicine
DX: R07.89 Other chest pain (principal); R06.2 Wheezing; Z79.811 Long term (current) use of aromatase inhibitors
CPT/HCPCS: 36415; 80048; 83880; 84484; 85025; 86140; 93005; 94761; 99284

== ENCOUNTER 2024-11-20 00:36 | Outpatient (CLI) | payer MEDICARE, BC, SELFPAY | END 2024-11-20 00:37 | disposition home or self-care (01) | PROVIDERS: PCP Family Medicine; Visit Provider Orthopaedic Surgery | DX: R53.1 Weakness (principal) | CPT/HCPCS: A0998 ==